=== PATIENT | female | born 1965 | race Caucasian/White ===

== ENCOUNTER 2018-09-08 00:25 | Outpatient (CLI) | payer OTHER, SELFPAY ==
--- NOTE | 2018-09-08 08:21 | DI.MAMMO_ITS ---
SYMPTOMS/DIAGNOSIS: SCREENING, Z12.31 MAMMOGRAMS: Mammograms were interpreted according to the usual protocol including computer analysis with CAD system, tomosynthesis and C view imaging. The breast tissue is heterogeneously radiodense, which lowers the sensitivity of the study. There is no dominant mass. There are no suspicious calcifications and there has been no significant interval change when compared with prior images. SUMMARY: No evidence of malignancy, category 1. Yearly screening mammography is recommended. Breast density category C. MQSA ASSESSMENT OF FINDINGS: Negative. Category 1. Patient will receive a letter notifying them of these results. Bi-RADS category C. The breasts are heterogeneously dense, which may obscure small masses.
== END 2018-09-08 00:45 ==
PROVIDERS: PCP Student in an Organized Health Care Education/Training Program; Visit Provider Nurse Practitioner Family
DX: Z12.31 Encounter for screening mammogram for malignant neoplasm of breast (principal)
CPT/HCPCS: 77063; 77067

== ENCOUNTER 2018-11-15 10:33 | Outpatient (CLI) | payer OTHER, SELFPAY ==
--- NOTE | 2018-11-15 10:31 | DI.RAD_ITS ---
SYMPTOM/DIAGNOSIS: LT KNEE PAIN LEFT KNEE: There is a small joint effusion. There is spurring at the quadriceps insertion on the patella. The femoral tibial and patellofemoral joint spaces appear well maintained. IMPRESSION: Mild degenerative changes and joint effusion.
== END 2018-11-15 10:53 ==
PROVIDERS: PCP Student in an Organized Health Care Education/Training Program; Visit Provider Physician Assistant
DX: M25.562 Pain in left knee (principal); M17.12 Unilateral primary osteoarthritis, left knee; M25.462 Effusion, left knee
CPT/HCPCS: 73562

== ENCOUNTER 2018-11-18 08:18 | Emergency (ER) | payer OTHER, SELFPAY ==
[2018-11-18 08:29] VITALS: BP 159/95; PULSE 74; RESP 16; TEMP 36.6; O2SAT 96
--- NOTE | 2018-11-18 08:37 | W.ED.GENAD ---
Discharge Plan Disposition Patient Disposition: HOME Condition: Stable Discharge Details Chief Complaint: RespSymp Clinical Impression: Acute upper respiratory infection Primary Care Provider: Seda Estrada ED Provider: Jan Vizcarra Home Meds and New Rx's Prescriptions: New prednisone 20 mg tablet 60 mg PO DAILY 4 Days Qty: 12 RF: 0 Continued ywjmymoytj-tpsnzejuybzcx-enyw 50-300-40 mg capsule 1 cap PO TID PRN (Reason: pain) Qty: 30 RF: 2 cholecalciferol (vitamin D3) 3,000 unit tablet 4,000 unit PO DAILY Qty: 90 RF: 5 Estring 2 mg (7.5 mcg /24 hour) ring 1 vag ring VG [id number] Qty: 1 RF: 0 Arnuity Ellipta 200 mcg/actuation blister with device 1 inh IH DAILY Qty: 30 RF: 0 hydrochlorothiazide 12.5 mg tablet 12.5 mg PO DAILY Qty: 90 RF: 3 omega-3 fatty acids 1,000 mg capsule 1,000 mg PO DAILY Qty: 90 RF: 3 orphenadrine citrate 100 mg tablet extended release 100 mg PO BID Qty: 180 RF: 3 rizatriptan [Maxalt] 10 mg tablet 10 mg PO .COMPLEX Qty: 30 RF: 2 Discharge Instructions Instructions: Upper Respiratory Infection (ED) Additional Instructions: follow up with your primary care provider within a week if symptoms continue return to the emergency department if you have severe worsening shortness of breath or severe pain Medical Decision Making 52 yo female who states she has a hx of asthma when she has uri's, who comes in with dry cough for a week. Denies fevers recent travel or chest pressure. Has been using inhaler without relief and states she has azithromycin which she started 3 days ago. She appears well systemically and has no fever so doubt pna and do not feel chest imaging indicated. She does have some apical wheezing bilaterally and clear rhinorrhea, suspect viral uri, will tx with steroid and neb and reassess. pt feeling much better and no longer has wheeizng. will start prednisone and have her f/u with pcp and return precautions given Differential Diagnosis bronchitis, asthma, pna HPI General Mode of arrival: ambulatory. Date/Time Provider Initiated Documentation: 11/18/18 08:29. Limitations to Documentation: no limitations. Information obtained by: patient. History of Present Illness 52 year old F presents to the emergency department with the chief complaint of cough, described as moderate, Patient started experiencing this day(s) (4) and it has been constant. No relieving factors improve symptom(s), No exacerbating factors reported . Patient did receive the following treatments prior to arrival, other (inhaler, azithromycin) Related Data Home Medications Medication Instructions Recorded Confirmed jmicdefqdb-fxnahfxezdbqq-slyvxnmi 1 cap PO TID PRN #30 cap 11/04/18 11/18/18 50 mg-300 mg-40 mg capsule cholecalciferol (vitamin D3) 3,000 4,000 unit PO DAILY #90 tab 11/04/18 11/18/18 unit tablet estradiol 2 mg (7.5 mcg/24 hour) 1 vag ring VG [id number] #1 each 11/04/18 11/18/18 vaginal ring fluticasone furoate 200 1 inh IH DAILY #30 each 11/04/18 11/18/18 mcg/actuation blister powder for inhalation hydrochlorothiazide 12.5 mg tablet 12.5 mg PO DAILY #90 tab 11/04/18 11/18/18 omega-3 fatty acids 1,000 mg 1,000 mg PO DAILY #90 cap 11/04/18 11/18/18 capsule orphenadrine citrate ER 100 mg 100 mg PO BID #180 tab 11/04/18 11/18/18 tablet,extended release rizatriptan 10 mg tablet 10 mg PO .COMPLEX #30 tab 11/04/18 11/18/18 prednisone 60 mg PO DAILY 4 Days #12 tab 11/18/18 Previous Rx's Medication Instructions Recorded rtckpntkjd-mimzhhnggdnhz-zhkpmrgc 1 cap PO TID PRN #30 cap 11/04/18 50 mg-300 mg-40 mg capsule cholecalciferol (vitamin D3) 3,000 4,000 unit PO DAILY #90 tab 11/04/18 unit tablet estradiol 2 mg (7.5 mcg/24 hour) 1 vag ring VG [id number] #1 each 11/04/18 vaginal ring fluticasone furoate 200 1 inh IH DAILY #30 each 11/04/18 mcg/actuation blister powder for inhalation hydrochlorothiazide 12.5 mg tablet 12.5 mg PO DAILY #90 tab 11/04/18 omega-3 fatty acids 1,000 mg 1,000 mg PO DAILY #90 cap 11/04/18 capsule orphenadrine citrate ER 100 mg 100 mg PO BID #180 tab 11/04/18 tablet,extended release rizatriptan 10 mg tablet 10 mg PO .COMPLEX #30 tab 11/04/18 prednisone 60 mg PO DAILY 4 Days #12 tab 11/18/18 Allergies Allergy/AdvReac Type Severity Reaction Status Date / Time naproxen [From Naprelan] Allergy Unknown Hives. Verified 11/18/18 08:33 Long acting naproxen. Tolerates Naproxen fine Tetanus Vaccines and Toxoid AdvReac Unknown Flu like Verified 11/18/18 08:33 symptoms General Stated Complaint: RespSymp LUCERO: 3 Review of Systems Review of Systems All systems reviewed & are unremarkable except as noted in HPI and below Constitutional Denies chills, Denies fever(s) and Denies weakness Gastrointestinal Denies abdominal pain and Denies vomiting Integumentary/Breasts Denies rash Neurologic Denies weakness PFSH Medical History Family hx of colon cancer requiring screening colonoscopy (Chronic) Hyperglycemia (Acute) Vitamin D deficiency (Acute) Osteoarthritis (Chronic) Seizures (Resolved) Migraine headache (Chronic) delivery delivered (Acute) Surgical History 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 What is your relationship status?: Panel score (0-1 are the most socially isolated patients): 1 What type of physical activity do you participate in: none Seatbelt use: always Exam Const General: no acute distress Orientation: alert HENMT Head: normal to inspection Ears: external ears normal General nose exam: external nose normal Mouth: moist mucous membranes Eyes General: appearance normal, both eyes and all related structures Neck Neck: normal visual inspection Resp Effort & Inspection: normal respiratory effort and able to speak in complete sentences Cardio Rate: regular rate Skin General skin exam: no rashes or lesions noted Neuro General: alert and oriented x3 Extrem General: normal to inspection Psych Mental Status: mental status grossly normal Course Vital Signs Temperature 36.6 C 11/18/18 08:29 Pulse 74 11/18/18 08:29 Respiratory Rate 16 11/18/18 08:29 Blood Pressure 159/95 H 11/18/18 08:29 Pulse Oximetry 96 11/18/18 08:29 Temperature 36.6 C 11/18/18 08:29 Temperature Source Skin 11/18/18 08:29 Pulse 74 11/18/18 08:29 Respiratory Rate 16 11/18/18 08:29 Respiratory Effort Non-Labored 11/18/18 08:29 Blood Pressure 159/95 H 11/18/18 08:29 Blood Pressure Position Sitting 11/18/18 08:29 Pulse Oximetry 96 11/18/18 08:29 Oxygen Delivery Method Room Air 11/18/18 08:29 Oxygen Flow Rate 0 11/18/18 08:29 Pain Level 2 11/18/18 08:29
[2018-11-18 08:40] VITALS: RESP 8
[2018-11-18] MEDS: Albuterol/Ipratropium 3 ML UPD VIAL UPD (08:40)
[2018-11-18] MEDS: predniSONE 20 MG TAB 60 MG PO (08:40)
== END 2018-11-18 12:49 | disposition home or self-care (01) ==
PROVIDERS: Emergency Provider Emergency Medicine; PCP Student in an Organized Health Care Education/Training Program
DX: J06.9 Acute upper respiratory infection, unspecified (principal); J45.909 Unspecified asthma, uncomplicated
CPT/HCPCS: 94640; 99283; J7512; J7620

== ENCOUNTER 2019-01-10 09:39 | Outpatient (CLI) | payer OTHER, SELFPAY ==
--- NOTE | 2019-01-10 16:45 | DI.RAD_ITS ---
SYMPTOM/DIAGNOSIS: EXAC OF ASTHMA, BRONCHITIS, J45.901, J40 PA AND LATERAL CHEST: No priors. The heart is normal in size. The lungs are clear. The mediastinal structures and pleura appear intact. CONCLUSION: Normal chest.
== END 2019-01-10 09:59 ==
PROVIDERS: PCP Nurse Practitioner Adult Health; Visit Provider Nurse Practitioner Adult Health
DX: J40 Bronchitis, not specified as acute or chronic (principal); J45.901 Unspecified asthma with (acute) exacerbation
CPT/HCPCS: 71046

== ENCOUNTER 2019-02-14 02:16 | Outpatient (CLI) | payer OTHER, SELFPAY ==
--- NOTE | 2019-02-14 | PFT_ITS ---
PULMONARY FUNCTION TEST REPORT Patient - Marissa Zuluaga 63 DATE OF SERVICE February 14, 2019 REQUESTING PROVIDER Marilee Mccullough N.P. INTERPRETATION OF STUDY Spirometry shows no evidence of obstructive airways disease. No bronchodilator response. LUNG VOLUMES - Lung volumes show no evidence of restriction. DIFFUSION CAPACITY- Normal. AIRWAY RESISTANCE - Normal. IMPRESSION Overall normal pulmonary function study. There was somewhat poor patient effort for both pre and post bronchodilator spirometry. Clinical correlation recommended. Geraldine Schneider M.D. NAIN/ T- 02/21/19
[2019-02-14] MEDS: Inhaler, Assist Device 1 EACH MC (15:29)
[2019-02-14] MEDS: Albuterol HFA 18 GM 200 PUFF INH IH (15:30)
== END 2019-02-14 02:36 ==
PROVIDERS: PCP Student in an Organized Health Care Education/Training Program; Visit Provider Nurse Practitioner Adult Health
DX: J45.909 Unspecified asthma, uncomplicated (principal); R05 Cough
CPT/HCPCS: 94060; 94150; 94726; 94729

== ENCOUNTER 2019-02-18 13:40 | Outpatient (CLI) | payer OTHER, SELFPAY ==
[2019-02-18 14:37] LABS: HCT 41.5 % (36.0-46.0); HGB 13.7 g/dL (12.0-15.5); Mean Corpuscular Hemoglobin 29.8 pg (27.0-33.0); Mean Corpuscular Volume 90.2 fL (80-95); Mean Platelet Volume 10.7 fL (8.0-11.0); Platelet Count 221 x1000/uL (130-400); RBC Distribution Width 13.9 % (11.7-14.6); White Blood Cell Count 5.17 k/cumm (4.4-10.8)
[2019-02-18 15:08] LABS: Anion Gap 10.2 mmol/L (3-11); BUN 12 mg/dL (7-18); CO2 27.8 mmol/L (21.0-32.0); CREATININE 0.74 mg/dL (0.55-1.02); Calcium 8.8 mg/dL (8.5-10.1); Chloride 103 mmol/L (98-107); Glucose 136 mg/dL (70-100); Potassium 3.7 mmol/L (3.5-5.1); Sodium 141 mmol/L (136-145)
[2019-02-18 15:14] LABS: C-Reactive Protein 0.64 mg/dL (0.0-0.3); Creatine Kinase 151 U/L (26-192); PHOSPHORUS 3.8 mg/dL (2.6-4.7)
[2019-02-18 16:08] LABS: ESR 6 mm/hr (0-30)
[2019-02-20 08:38] LABS: Vitamin D 25 Total 37.4 ng/ml (30-100)
[2019-02-21 11:38] LABS: Rheumatoid Factor <8 IU/mL (<12.5)
[2019-02-21 13:45] LABS: ANA Interpretation Negative (NEGAT)
== END 2019-02-18 14:00 ==
PROVIDERS: Obstetrics & Gynecology Gynecology; PCP Student in an Organized Health Care Education/Training Program; Visit Provider Psychiatry & Neurology Neurology
DX: M79.10 Myalgia, unspecified site (principal); N92.0 Excessive and frequent menstruation with regular cycle; I10 Essential (primary) hypertension; E66.09 Other obesity due to excess calories; Z01.812 Encounter for preprocedural laboratory examination; Z01.818 Encounter for other preprocedural examination
CPT/HCPCS: 36415; 80048; 82306; 82550; 85027; 85652; 86850; 86900; 86901; 84100; 86038; 86140; 86431

== ENCOUNTER 2019-02-23 06:15 | Day surgery (SDC) | payer OTHER, SELFPAY ==
[2019-02-23 06:17] VITALS: BP 131/75; PULSE 76; RESP 17; TEMP 36.6; O2SAT 95
[2019-02-23] MEDS: Lactated Ringers 1,000 ML 125 ML IV (06:40)
[2019-02-23] MEDS: Bupivacaine 0.25% Pres-Free 30 ML VIAL (07:54)
--- NOTE | 2019-02-23 08:11 | ENDOMET_PTH ---
PATIENT: Marissa Zuluaga LOC: [facility] U#:[id number] AGE/SX: 53/F ROOM: RE02/23/[address]: Cristal Marquis : 1965 BED: DIS: 02/23/2019 SPEC #: [id number] RECD: 02/23/19 12:36 STATUS: MACHELLE REQ #: [id number] JOSÉ MANUEL: 02/23/19 08:[address]: Cristal Marquis DEPT: Surgical Specimen RECD BY: Amy Odell ENTERED: 02/23/19 12:37 SP TYPE: Endomet OTHR DR: Seda Estrada DO Tissues: 1 - ENDOMETRIUM BX/CURRETTE Procedures: GROSS AND MICRO LEVEL 4 Comments: [id number]
[2019-02-23 08:19] VITALS: BP 132/78; PULSE 82; RESP 19; TEMP 36.7; O2SAT 98
[2019-02-23 08:24] VITALS: BP 140/80; PULSE 75; RESP 12; TEMP 36.7; O2SAT 100
--- NOTE | 2019-02-23 08:26 | W.PM.DSUDISC ---
Discharge Plan Disposition Patient Disposition: HOME Condition: Fair Discharge Details Attending Provider: Cristal Marquis Primary Care Provider: Seda Estrada Home Meds and New Rx's Prescriptions: No Action carbidopa-levodopa [Sinemet] 25-100 mg tablet 1 tab PO DIRECTED Qty: 60 RF: 5 orphenadrine citrate 100 mg tablet extended release 100 mg PO BID PRNRF: 0 smqrhcgpqh-wtcegrkuuofia-prpi 50-300-40 mg capsule 1 cap PO TID PRN (Reason: pain) Qty: 30 RF: 2 cholecalciferol (vitamin D3) 3,000 unit tablet 4,000 unit PO DAILY Qty: 90 RF: 5 hydrochlorothiazide 12.5 mg tablet 12.5 mg PO DAILY Qty: 90 RF: 3 omega-3 fatty acids 1,000 mg capsule 1,000 mg PO DAILY Qty: 90 RF: 3 rizatriptan [Maxalt] 10 mg tablet 10 mg PO .COMPLEX Qty: 30 RF: 2 norethindrone acetate 5 mg tablet 5 mg PO .COMPLEX Qty: 60 RF: 1 Arnuity Ellipta 200 mcg/actuation blister with device 1 inh IH DAILY Qty: 30 RF: 0 Discharge Instructions Stand Alone Forms: DSU Post Gynecology Surgery Activity:: Activity as Tolerated Diet:: As Tolerated Discharge Orders Discharge Orders: Discharge Order (Routine); Ordered 02/23/19 Ordered By: Cristal Mraquis DS: Diagnosis Discharge Diagnosis (1) Encounter for IUD insertion: Start date: 02/23/19 Status: Acute (2) Abnormal uterine bleeding (AUB): Status: Acute
[2019-02-23 08:29] VITALS: BP 141/82; PULSE 75; RESP 11; TEMP 36.7; O2SAT 100
--- NOTE | 2019-02-23 08:30 | ROE_ITS ---
Date of service: 02/23/19 Time of Service: 08:30 Operative Note DATE OF PROCEDURE: 02/23/19 PRE-OP DIAGNOSIS: Abnormal uterine bleeding POST-OP DIAGNOSIS: same PROCEDURE: Diagnostic hysteroscopy, D&C, description of procedure. SURGEON: Cristal Marquis ANESTHESIA: DESHAWN ESTIMATED BLOOD LOSS: 5 PATHOLOGY: other (Endometrial curettings to pathology) COMPLICATIONS: None Patient was transported to: PACU Patient's condition: stable Indications: 53-year-old female with abnormal uterine bleeding not responsive to medical therapy. She had Mirena IUD in the past which was difficult to placed in the office decision was made to proceed with the IUD placement after the D&C. Findings: Uterus sounded to 8 cm and anteflexed. Thickened endometrial lining with synechial-like adhesions in the cavity. No fibroids. Multiple polypoid structures that were removed during the curettage. Procedure Description: Patient was taken the operating room she placed in the dorsal supine position in general laryngeal mask anesthesia was administered without difficulty. She was then placed in the dorsolithotomy position in yellowfin stirrups prepped and draped in the usual sterile fashion. A timeout was performed. A bivalve speculum was placed in the vagina and the anterior lip of the cervix was infiltrated with 1 cc of quarter percent Marcaine without epinephrine. A single-tooth tenaculum was then used to grasp the anterior lip of the cervix and a paracervical block was performed using quarter percent Babatunde ine 5 cc in the vaginal cervical interface at the 4 and 8:00 positions. Cervix was dilated to a maximum of 16 Malik allowing a hysteroscope to be inserted into the uterine cavity with normal saline as distention medium. The cavity was carefully inspected with the above-noted findings. The hysteroscope was then removed and banjo curette was inserted into the uterine cavity and all 4 quadrants of the uterine cavity were sequentially curetted until gritty texture was obtained. Moderate amount of polypoid tissue was removed. Hysteroscope was then reinserted into the uterine cavity cavity inspected and a final curettage was performed after the hysteroscope was removed. A reinsertion of the hysteroscope and inspection uterine cavity showed this the keel tissue and the polypoid tissue to be significantly reduced. Tenaculum was removed from the anterior lip of the cervix tenaculum site was noted to be hemostatic. All instruments removed from the patient's vagina. The patient was then placed in the dorsal supine position awakened extubated and transported to recovery in stable condition. All sponge lap needle counts correct x2. No antibiotics were required for this procedure. SCDs are in place for the entire case.
[2019-02-23 09:25] VITALS: BP 130/72; PULSE 72; RESP 16; TEMP 36.4; O2SAT 99
--- NOTE | 2019-02-23 17:17 | ROE_ITS ---
Date of service: 02/23/19 Time of Service: 17:18 Operative Note DATE OF PROCEDURE: 02/23/19 PRE-OP DIAGNOSIS: Abnormal uterine bleeding POST-OP DIAGNOSIS: same PROCEDURE: Diagnostic hysteroscopy, D&C, description of procedure. SURGEON: Cristal Marquis ANESTHESIA: DESHAWN ESTIMATED BLOOD LOSS: 5 PATHOLOGY: other (Endometrial curettings to pathology) Patient was transported to: PACU Patient's condition: stable Implants: Diagnostic hysteroscopy, D&C, Mirena IUD insertion after the procedure Indications: 53yo female with heavy, daily bleeding five months after Mirena IUD removed. Some but not complete response to Progestin therapy. Findings: Uterus sounded to 8 cm the endometrial lining was irregular, thick with bands of lining suggesting synechiae. Both tubal ostia were visualized. 3 small polypoid structures were appreciated and were successfully curetted and removed. Procedure Description: Patient was placed in the dorsal supine position and laryngeal mask anesthesia was administered without difficulty she was then placed in the dorsal lithotomy position in [facility] SCDs in place. She was prepped and draped in the usual sterile fashion. A surgical timeout was performed. A bivalve speculum was placed in the vagina and the anterior lip of the cervix was infiltrated with 1 cc of quarter percent Marcaine without epinephrine. A single-tooth tenaculum was used to grasp the anterior lip of the cervix and hold it in place. The cervix was sequentially dilated to a maximum of 16 Malik after the uterus was sounded. Hysteroscope was then introduced into the uterine cavity and under direct visualization with normal saline as a distention medium. After inspection of the uterine cavity the banjo curette was used to sequentially curetted all 4 quadrants of the uterine cavity until a gritty texture was obtained.
== END 2019-02-23 10:11 | disposition home or self-care (01) ==
PROVIDERS: PCP Student in an Organized Health Care Education/Training Program; Visit Provider Obstetrics & Gynecology Gynecology
PROC: 0UDB8ZZ Extraction of Endometrium, Via Natural or Artificial Opening Endoscopic (ICD-10-PCS; CPT 58558; principal; 2019-02-23 07:30)
PROC: (CPT 58558; 2019-02-23 07:30)
DX: N93.9 Abnormal uterine and vaginal bleeding, unspecified (principal); N85.00 Endometrial hyperplasia, unspecified
CPT/HCPCS: 58558; 81025; 86850; 86900; 86901; 88305; J1100; J1885; J2250; J2405

== ENCOUNTER 2019-03-17 12:18 | Day surgery (SDC) | payer OTHER, SELFPAY ==
[2019-03-17] MEDS: Lactated Ringers 1,000 ML 80 ML IV (12:40)
[2019-03-17 12:49] VITALS: BP 137/90; PULSE 85; RESP 16; TEMP 36.1; O2SAT 98
--- NOTE | 2019-03-17 14:11 | W.PM.DSUDISC ---
Discharge Plan Disposition Patient Disposition: HOME Condition: Good Discharge Details Reason For Visit: Colonoscopy Attending Provider: Cynthia Zhao Primary Care Provider: Seda Estrada Home Meds and New Rx's Prescriptions: Continued carbidopa-levodopa [Sinemet] 25-100 mg tablet 1 tab PO DIRECTED Qty: 60 RF: 5 orphenadrine citrate 100 mg tablet extended release 100 mg PO BID PRNRF: 0 ozqftspgeh-tfuskgodefnhc-gbvk 50-300-40 mg capsule 1 cap PO TID PRN (Reason: pain) Qty: 30 RF: 2 cholecalciferol (vitamin D3) 3,000 unit tablet 4,000 unit PO DAILY Qty: 90 RF: 5 hydrochlorothiazide 12.5 mg tablet 12.5 mg PO DAILY Qty: 90 RF: 3 omega-3 fatty acids 1,000 mg capsule 1,000 mg PO DAILY Qty: 90 RF: 3 rizatriptan [Maxalt] 10 mg tablet 10 mg PO .COMPLEX Qty: 30 RF: 2 Arnuity Ellipta 200 mcg/actuation blister with device 1 inh IH DAILY Qty: 30 RF: 0 acetaminophen [Tylenol] 325 mg Capsule 650 mg PO ONCE PRNRF: 0 MigreLief 200-180-50 mg Tablet PO RF: 0 Discharge Instructions Additional Instructions: Findings: Diverticulosis was present. Make sure to take in 30 grams of fiber daily. Follow up: Plan for colonoscopy in 5 years due to family history. Please call if you develop: fevers >101.5 Nausea or Vomiting Abdominal pain that is not transient DAY SURGERY UNIT POST COLONOSCOPY INSTRUCTIONS 1. Because there will be medication in your system for the next 24 hours, you may feel a little sleepy. Your coordination will be affected. Therefore: a. Do not drive or operate dangerous equipment for 24 hours. b. Do not drink alcohol beverages for 24 hours (not even beer). c. Plan to go home and rest for the day. 2. Generally there are no restrictions on your activity after a day or so has gone by, but you may feel a bit fatigued for a few days. 3 After you arrive home you may have a light meal and return to a normal diet as you can tolerate it without feeling sick to your stomach. 4. After surgery, you may feel pain or discomfort. This should be only transient, but if it persists please contact your doctor. 5. If there are any questions regarding the findings of your procedure, please feel free to contact your doctor. 6. If you are unable to contact your doctor with a problem, contact the hospital at [phone]. 7. Continue all your regular medications unless directed otherwise. I understand the above instructions and have no questions. Signature of Patient or Responsible Adult Escort Date/Time Name of Responsible Adult Escort Signature of Nurse Date/Time Activity:: Activity as Tolerated Diet:: As Tolerated Discharge Orders Discharge Orders: Discharge Order (Routine); Ordered 03/17/19 Ordered By: Cynthia Zhao DS: Diagnosis Discharge Diagnosis (1) Diverticulosis: Status: Acute
[2019-03-17 15:04] VITALS: BP 147/96; PULSE 81; RESP 16; TEMP 36.6; O2SAT 99
--- NOTE | 2019-03-18 07:51 | COLE_ITS ---
REPORT OF OPERATIVE PROCEDURE DATE OF PROCEDURE March 17, 2019 PREOPERATIVE DIAGNOSIS Family history of colon cancer. POSTOPERATIVE DIAGNOSIS Diverticulosis. PROCEDURE Colonoscopy. SURGEON Cynthia Zhao M.D. ANESTHESIA General. INDICATIONS This is a 53-year-old woman who presents for routine colon evaluation. Her last colonoscopy was in . Her mother was treated for colon cancer. She is asymptomatic. PROCEDURE DESCRIPTION She was placed in the left [place] position. Propofol was titrated to sedation. Digital rectal examinati on revealed no abnormities. The scope was advanced to the cecum without difficulty. Her prep was exce llent. The ileocecal valve and the appendiceal orifice were clearly identified. The patient was noted to have a diverticulum a few centimeters away from the appendiceal orifice that had a ball of stool lodged in it. The scope was slowly withdrawn with scattered diverticulosis noted throughout the colon . She had a moderate amount in the sigmoid region. No other abnormalities were seen within the ascen ding, transverse, descending, sigmoid colon or rectum including on retroflexed view. She tolerated th e procedure well and was stable to Recovery. She will need a followup colonoscopy in five years due t o her family history. CC: Seda Estrada DO
== END 2019-03-17 15:20 | disposition home or self-care (01) ==
PROVIDERS: PCP Student in an Organized Health Care Education/Training Program; Visit Provider Surgery
PROC: 0DJD8ZZ Inspection of Lower Intestinal Tract, Via Natural or Artificial Opening Endoscopic (ICD-10-PCS; CPT 45378; principal; 2019-03-17 13:30)
DX: Z12.11 Encounter for screening for malignant neoplasm of colon (principal); Z80.0 Family history of malignant neoplasm of digestive organs; K57.30 Diverticulosis of large intestine without perforation or abscess without bleeding
CPT/HCPCS: 45378

== ENCOUNTER 2019-05-30 11:19 | Outpatient (REF) | payer OTHER, SELFPAY ==
[2019-05-30 12:46] LABS: Bilirubin Negative (Negative); Blood Trace-lysed (Negative); Clarity Clear (Clear); Glucose Negative (Negative); Ketones Negative (Negative); Leukocyte Esterase Small (Negative); Nitrite Positive (Negative); Urobilinogen 0.2 EU/dL (Up TO 0.2)
[2019-05-30 13:07] LABS: Epithelial Cells Negative HPF (Negative); RBC 0-2 HPF (0-2); WBC 0-2 HPF (0-5)
[2019-05-30 13:08] LABS: Bacteria Rare HPF (Negative); C & S Indicated? Yes; Casts Negative LPF (Negative); Crystals Negative HPF (Negative); Mucus Negative (Negative); Other Cells Negative (Negative)
== END 2019-05-30 11:39 ==
LOC: LBN 11:19
PROVIDERS: PCP Student in an Organized Health Care Education/Training Program; Visit Provider Advanced Practice Midwife
DX: R30.0 Dysuria (principal)
CPT/HCPCS: 87077; 81003; 81015; 87086; 87186

== ENCOUNTER 2019-08-30 16:01 | Outpatient (CLI) | payer OTHER, SELFPAY ==
--- NOTE | 2019-08-30 15:42 | DI.RAD_ITS ---
EXAM: XR HAND RT COMPLETE CLINICAL HISTORY: Pain and stiffness, right pointer finger. M79.644, M25.649, decreased range of mo tion rt hand/fingers TECHNIQUE: 2D digital imaging was performed. COMPARISON: No exams were available for comparison FINDINGS: BONES: No acute fracture is present. At the interphalangeal joints, joint space narrowing, subchondra l sclerosis and periarticular spurring is present. There are erosions seen at the distal interphalan geal joints of the right hand. There is ankylosis of the DIP joint of the right ring finger. Metaca rpophalangeal joints are well maintained. JOINTS: No dislocation present. SOFT TISSUE: Normal. IMPRESSION: Findings suggestive of erosive osteoarthritis. DATA REPOSITORY: RADIATION DOSE DELIVERED:
== END 2019-08-30 16:21 ==
PROVIDERS: PCP Student in an Organized Health Care Education/Training Program; Visit Provider Nurse Practitioner
DX: M79.644 Pain in right finger(s) (principal); M25.841 Other specified joint disorders, right hand; M25.641 Stiffness of right hand, not elsewhere classified; M19.041 Primary osteoarthritis, right hand
CPT/HCPCS: 73130

== ENCOUNTER 2019-10-11 08:07 | Outpatient (CLI) | payer OTHER, SELFPAY ==
--- NOTE | 2019-10-11 10:00 | DI.RAD_ITS ---
EXAM: RF JOINT INJECTION FLUORO GUID CLINICAL HISTORY: FLUORO INJECTION R INDEX FINGER,FINGER STIFFNESS,FINGER PAIN,M25.649, TECHNIQUE: 2D and realtime digital imaging was performed. CONTRAST MATERIAL: Water soluble contrast was administered. COMPARISON: No exams were available for comparison FINDINGS: Fluoroscopy was provided for Dr. Zabala during the performance of a injection into the PIP joint o f the index finger. Please refer to the procedure report for complete details. Fluoro time: .02 seconds
[2019-10-11] MEDS: Bupivacaine 0.5% Pres-Free 10 ML VIAL EP (10:09)
[2019-10-11] MEDS: methylPREDNISolone ACETATE 40 MG/ML VIAL 20 MG IM (10:11)
--- NOTE | 2019-10-11 10:46 | W.PROCNOTE ---
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 X-rays demonstrated erosive arthritis of the PIP joint of the index finger. Given the pain, the location of the pain, and the restriction that is imposing on her daily work life schedule, I offered an injection. The goal of the injection was to decrease pain and allow for continued motion to prevent continued distraction of the joint and ultimate fusion as happened to the DIP joint of the ring finger. I discussed the risks of the injection and she agreed to proceed. Procedure Description: Marissa was greeted in the fluoroscopy room. A consent for procedure was signed with the patient after reviewing the procedure details. She was seated next to the fluoroscopy table and her right hand was placed out onto the table. The right index finger was then prepped with ChloraPrep. The radial border of the right index finger PIP joint was then anesthetized subcutaneously with 0.5 cc of 1% lidocaine. After give this a few minutes to set up, fluoroscopy was used to orient the needle for appropriate entry into the PIP joint. A 25-gauge needle was then inserted down to bone. Gentle manipulation of the needle with fluoroscopy assistance provided entry into the PIP joint with easy flow of the injection, 0.5 cc of 0.5% bupivacaine and 20 mg of Depo-Medrol. She tolerated this well. She had notable improvement with her pain after the injection. A Band-Aid was applied.
== END 2019-10-11 08:27 ==
PROVIDERS: PCP Student in an Organized Health Care Education/Training Program; Visit Provider Student in an Organized Health Care Education/Training Program
DX: M79.644 Pain in right finger(s) (principal); M25.641 Stiffness of right hand, not elsewhere classified; M15.4 Erosive (osteo)arthritis
CPT/HCPCS: 20600; 77002; J1030

== ENCOUNTER 2019-10-31 03:30 | Outpatient (CLI) | payer OTHER, SELFPAY ==
[2019-11-01 10:05] LABS: Cyclic Citrullinated Peptide <2.5 U/mL (<5.0)
== END 2019-10-31 03:50 ==
PROVIDERS: PCP Student in an Organized Health Care Education/Training Program; Visit Provider Internal Medicine
DX: J45.909 Unspecified asthma, uncomplicated (principal)
CPT/HCPCS: 36415; 86200

== ENCOUNTER 2019-12-16 20:08 | Outpatient (REF) | payer OTHER, SELFPAY ==
[2019-12-16 20:39] LABS: Bilirubin Negative (Negative); Blood Moderate (Negative); Clarity Turbid (Clear); Glucose Negative (Negative); Ketones Negative (Negative); Leukocyte Esterase Small (Negative); Nitrite Negative (Negative); Specific Gravity >= 1.030 (1.005-1.025); Urobilinogen 0.2 EU/dL (Up TO 0.2); pH 5.5 (5-8)
[2019-12-16 20:59] LABS: Bacteria Few HPF (Negative); C & S Indicated? C&S Done As Ordered; Casts Negative LPF (Negative); Crystals Negative HPF (Negative); Epithelial Cells Few HPF (Negative); Mucus Negative (Negative)
== END 2019-12-16 20:28 ==
LOC: LBN 20:08
PROVIDERS: PCP Student in an Organized Health Care Education/Training Program; Visit Provider Advanced Practice Midwife
DX: R30.0 Dysuria (principal)
CPT/HCPCS: 87077; 81003; 81015; 87086; 87186

== ENCOUNTER 2020-03-17 12:09 | Outpatient (REF) | payer OTHER, SELFPAY ==
[2020-03-17 15:50] LABS: RBC 0-2 HPF (0-2); WBC Negative HPF (0-5)
[2020-03-17 15:51] LABS: Bacteria Negative HPF (Negative); Casts Negative LPF (Negative); Crystals Negative HPF (Negative); Epithelial Cells Rare HPF (Negative); Mucus Negative (Negative)
[2020-03-17 15:52] LABS: C & S Indicated? C&S Done As Ordered
== END 2020-03-17 12:29 ==
LOC: LBN 12:09
PROVIDERS: Obstetrics & Gynecology; PCP Student in an Organized Health Care Education/Training Program; Visit Provider Advanced Practice Midwife
DX: R30.0 Dysuria (principal)
CPT/HCPCS: 81003; 81015; 87086

== ENCOUNTER 2020-04-11 02:03 | Outpatient (CLI) | payer OTHER, SELFPAY ==
[2020-04-11 09:38] LABS: BUN 16 mg/dL (7-18); CREATININE 0.76 mg/dL (0.55-1.02); Calcium 8.8 mg/dL (8.5-10.1); Calculated LDL 118 mg/dL (<100); Chloride 106 mmol/L (98-107); Cholesterol 194 mg/dL (<200); Glucose 123 mg/dL (74-106); HDL Cholesterol 62 mg/dL (40-60); Potassium 4.1 mmol/L (3.5-5.1); Sodium 142 mmol/L (136-145); Triglyceride 73 mg/dL (<150)
== END 2020-04-11 02:23 ==
PROVIDERS: PCP Student in an Organized Health Care Education/Training Program; Visit Provider Student in an Organized Health Care Education/Training Program
DX: E86.0 Dehydration (principal); Z13.220 Encounter for screening for lipoid disorders; R60.9 Edema, unspecified; Z79.1 Long term (current) use of non-steroidal anti-inflammatories (NSAID)
CPT/HCPCS: 36415; 80048; 80061; 83735

== ENCOUNTER 2020-05-04 03:49 | Outpatient (CLI) | payer OTHER, SELFPAY ==
--- NOTE | 2020-05-04 06:00 | DI.MAMMO_ITS ---
EXAM: MG MAMMO SCREENING CLINICAL HISTORY: screening,Z12.39 TECHNIQUE: Bilateral full field digital CC and MLO mammographic images were obtained with 3D tomosyn thesis and utilizing computer aided detection (CAD). COMPARISON: Available for comparison. FINDINGS: Masses/Architectural Distortion: None seen. Microcalcifications: No suspicious pleomorphic-type are seen. Skin Thickening/Nipple Retraction: None. IMPRESSION: 1. No significant interval change with no specific features of malignancy noted. 2. Unless there is more urgent need, screening mammography is recommended, as per [employer] [place] [employer] guidelines. BI-RADS Category 1 - Negative Breast Density - Category C - Heterogeneously dense The mammogram demonstrates the patient's breast tissue is dense. Dense breast tissue is very common a nd is not abnormal but dense breast tissue can make it harder to find cancer on a mammogram. Also, de nse breast tissue may increase their breast cancer risk. This information about the result of the [facility] mogram report was provided to the patient to raise their awareness. Use this report when you speak wi th the patient about their risks for breast cancer, which includes their family history. At that time , you may recommend for more screening tests (Ultrasound or MRI) as they might be useful based on the ir risk. A negative radiographic report should not delay biopsy if a dominant or clinically suspicious mass is present. Up to ten percent of cancers are not identified on mammography. A negative report may reinforce clinical impression. Adenosis and dense breasts may obscure an underlying neoplasm. False positive reports average 6 to 10%. Patient will receive a letter notifying them of these results.
== END 2020-05-04 04:09 ==
PROVIDERS: PCP Student in an Organized Health Care Education/Training Program; Visit Provider Student in an Organized Health Care Education/Training Program
DX: Z12.31 Encounter for screening mammogram for malignant neoplasm of breast (principal)
CPT/HCPCS: 77063; 77067

== ENCOUNTER 2020-05-17 02:54 | Outpatient (CLI) | payer OTHER, SELFPAY ==
[2020-05-17 10:03] LABS: Abs Immature Grans 0.01 10^3/uL (0.0-0.06); Absolute Basophil Count 0.03 10^3/uL (0.0-0.2); Absolute Eosinophil Count 0.08 10^3/uL (0.0-0.7); Absolute Lymphocyte Count 1.41 10^3/uL (1.2-3.4); Absolute Monocyte Count 0.33 10^3/uL (0.1-0.8); Absolute Neutrophil Count 2.69 10^3/uL (1.2-6.7); Basophils % 0.7; Eosinophils % 1.8; HCT 41.6 % (36.0-46.0); HGB 13.9 g/dL (11.2-15.7); Immature Grans % 0.2; MCH 29.9 pg (27.0-33.0); MCHC 33.4 % (32.0-36.0); MCV 89.5 fL (80-95); MPV 9.8 fL (8.0-11.0); Monocytes % 7.3; Nucleated RBC 0 %; Platelet Count 227 10^3/uL (130-400); RBC 4.65 10^6/uL (3.93-5.22); RDW 14.2 % (11.7-14.6); RDW-SD 46.4 fL; WBC 4.55 10^3/uL (4.4-10.8)
[2020-05-17 11:20] LABS: ALT 67 U/L (14-59); AST 34 U/L (15-37); Albumin 3.9 g/dL (3.4-5.0); Alkaline Phosphatase 115 U/L (46-116); Anion Gap 6.7 mmol/L (3-11); BUN 19 mg/dL (7-18); Bilirubin, Total 0.8 mg/dL (0.2-1.0); C-Reactive Protein 0.68 mg/dL (0.0-0.3); CO2 28.3 mmol/L (21.0-32.0); CREATININE 0.85 mg/dL (0.55-1.02); Calcium 9.2 mg/dL (8.5-10.1); Chloride 103 mmol/L (98-107); Glucose 98 mg/dL (74-106); Potassium 3.9 mmol/L (3.5-5.1); Sodium 138 mmol/L (136-145); Total Protein 6.9 g/dL (6.4-8.2)
== END 2020-05-17 03:14 ==
PROVIDERS: PCP Student in an Organized Health Care Education/Training Program; Visit Provider Internal Medicine
DX: Z79.899 Other long term (current) drug therapy (principal); L40.0 Psoriasis vulgaris; M89.49 Other hypertrophic osteoarthropathy, multiple sites
CPT/HCPCS: 36415; 80053; 85025; 86140

== ENCOUNTER 2020-08-08 11:18 | Outpatient (CLI) | payer OTHER, SELFPAY ==
--- OUTSIDE RECORDS SUMMARY | 2020-08-08 11:23 | XMS_ITS ---
:1965 Author Care Team Providers Name Role Phone ALEX HAYWOOD Primary Care Provider [phone] Allergies Code Code System Name Reaction Severity Status Onset 7258 RxNorm Naproxen ? ? Active ? Tetanus and ? ? Active ? Diphtheria Toxoids Medications Name Status Start Date Stop Date ? ? acetaminophen 325 mg tablet Active ? Not available Take 2 tablets every 6 hours by oral route. albuterol sulf 90 mcg/actuation breath activated powder inhaler, sensor Active ? Not available Inhale 2 puffs every 4 hours by inhalation route. albuterol sulfate 2.5 mg/3 mL (0.083 %) Active ? Not available solution for nebulization Arnuity Ellipta 200 mcg/actuation Completed ? 04/20/2020 powder for inhalation benzonatate 100 mg capsule Active ? Not a vailable Breo Ellipta 100 mcg-25 mcg/dose powder Active ? Not available for inhalation Breo Ellipta 200 mcg-25 mcg/dose powder Active ? Not available for inhalation butalbital 50 mg-acetaminophen 300 mg tablet Active ? Not available Take 1 tablet every 4 hours by oral route. kabwwsupeg-smofjbwniwhvo-inipfjxv 50 Active ? Not available mg-300 mg-40 mg capsule carbidopa 25 mg-levodopa 100 mg tablet Active ? Not available cholecalciferol (vitamin D3) 75 mcg (3,000 unit) tablet Active ? Not available Take by oral route. ciprofloxacin 500 mg tablet Completed ? 03/30 Estring 2 mg (7.5 mcg/24 hour) vaginal Active ? Not available ring folic acid 1 mg tablet Active ? Not avail able Humira(CF) Pen 40 mg/0.4 mL Active ? Not available subcutaneous kit hydrochlorothiazide 12.5 mg capsule Completed ? 04/20/2020 hydrochlorothiazide 12.5 mg tablet Active ? Not available methotrexate sodium 2.5 mg tablet Active ? Not available metronidazole 500 mg tablet Completed ? 03/30 nitrofurantoin 100 mg tablet Active ? Not available Take by oral route. nitrofurantoin Completed ? 04/20/2020 monohydrate/macrocrystals 100 mg capsule norethindrone acetate 5 mg tablet Completed ? 04/20/2020 Keyes 3 Active ? Not available orphenadrine citrate 100 mg tablet Completed ? 04/20/2020 Take by oral route. orphenadrine citrate ER 100 mg Active ? N ot available tablet,extended release phenazopyridine 200 mg tablet Completed ? prednisone 10 mg tablet Completed ? 04/20/20 20 prednisone 20 mg tablet Completed ? 04/20/20 20 Proventil HFA 90 mcg/actuation aerosol Completed ? 04/20/2020 inhaler riboflavin 200 mg-magnesium citrate,oxide 180 mg-feverfew 50 mg tablet Active ? Not available Take by oral route. rizatriptan 10 mg tablet Active ? Not diego ilable Problems Name Status Onset Date Source ? Vitamin D Deficiency Active 09/07/2019 ? Vitamin Deficiency Unknown 09/07/2019 ? Seizure Disorder Active 09/07/2019 ? Migraine Active 09/07/2019 ? Asthma Active 09/07/2019 ? Diverticulitis Active 09/07/2019 ? Osteoarthritis Active 09/07/2019 ? Cramp in Lower Limb Active 09/07/2019 ? Hyperglycemia Active 09/07/2019 ? Obstructive Sleep Apnea Syndrome Active 10/11/2019 ? Tomography - Chest Abnormal Active 04/20/2020 ? Procedures Date Name Performed by ? 04/20/2020 CT, Chest, W/o Contrast [facility] (Radiology) [address] [place] [address] (Work Place) Results Lab Results Date Name Specimen Result Interpretation Description Value Range Status Address ? 10/31/2019 Cyclic ? No observation ? ? ? [facility] recorded. [place] Peptide Ab, [facility], Hosp ital Lab: Serum [address] [facility] [address] Past Encounters 04/20/2020 Asthma; Obstructive Sleep Apnea Syndrome ; Tomography - Chest Abnormal Geraldine Schneider MD: [address] [place] [address] Dr abel Rizvi , [place] [address], Ph. 10/11/2019 Asthma; Obstructive Sleep Apnea Syndrome Geraldine Schneider MD: [address] [place] [address] Dr abel [address]izvi , [place] [address], Ph. Social History None recorded. Vaccine List Vaccine Type influenza, injectable, quadrivalent 03/31/2019 Tdap 08/26/2003 Plan of Care Reminders Provider Appointments None ? ? recorded. Lab None ? ? recorded. Referral None ? ? recorded. Procedures None ? ? recorded. Surgeries None ? ? recorded. Imaging None ? ? recorded. Vitals Height Weight BMI Blood Pressure 167.64 cm 115.4 kg 41.1 kg/m2 138/64 mm[Hg]
[2020-08-08 14:55] LABS: HCT 41.5 % (36.0-46.0); MCHC 33.7 % (32.0-36.0); MPV 9.5 fL (8.0-11.0); Platelet Count 227 10^3/uL (130-400); RBC 4.51 10^6/uL (3.93-5.22); RDW 13.4 % (11.7-14.6); RDW-SD 44.6 fL; WBC 5.11 10^3/uL (4.4-10.8)
[2020-08-08 16:30] LABS: ALT 90 U/L (14-59); AST 40 U/L (15-37); Albumin 3.8 g/dL (3.4-5.0); Alkaline Phosphatase 112 U/L (46-116); Anion Gap 9.1 mmol/L (3-11); BUN 19 mg/dL (7-18); Bilirubin, Total 0.4 mg/dL (0.2-1.0); C-Reactive Protein 0.23 mg/dL (0.0-0.3); CO2 29.9 mmol/L (21.0-32.0); CREATININE 0.9 mg/dL (0.55-1.02); Calcium 8.9 mg/dL (8.5-10.1); Chloride 103 mmol/L (98-107); Glucose 110 mg/dL (74-106); Potassium 3.7 mmol/L (3.5-5.1); Sodium 142 mmol/L (136-145)
== END 2020-08-08 11:19 | disposition home or self-care (01) ==
LOC: LBO 11:21
PROVIDERS: PCP Student in an Organized Health Care Education/Training Program; Visit Provider Student in an Organized Health Care Education/Training Program
DX: L40.50 Arthropathic psoriasis, unspecified (principal)
CPT/HCPCS: 36415; 80048; 80076; 85027; 86140

== ENCOUNTER 2020-11-21 04:28 | Outpatient (CLI) | payer OTHER, SELFPAY ==
[2020-11-21 10:23] LABS: ESR 1 mm/hr (0-30)
[2020-11-21 10:28] LABS: Abs Immature Grans 0.02 10^3/uL (0.0-0.06); Absolute Basophil Count 0.03 10^3/uL (0.0-0.2); Absolute Eosinophil Count 0.06 10^3/uL (0.0-0.7); Absolute Lymphocyte Count 1.75 10^3/uL (1.2-3.4); Absolute Monocyte Count 0.43 10^3/uL (0.1-0.8); Absolute Neutrophil Count 2.54 10^3/uL (1.2-6.7); Basophils % 0.6; Eosinophils % 1.2; HCT 40.1 % (36.0-46.0); HGB 13.2 g/dL (11.2-15.7); Immature Grans % 0.4; Lymphocytes % 36.2; MCH 30.3 pg (27.0-33.0); MCHC 32.9 % (32.0-36.0); MPV 10.1 fL (8.0-11.0); Monocytes % 8.9; Neutrophils % 52.7; Nucleated RBC 0 %; Platelet Count 198 10^3/uL (130-400); RBC 4.36 10^6/uL (3.93-5.22); RDW 13.3 % (11.7-14.6); RDW-SD 45.4 fL; WBC 4.83 10^3/uL (4.4-10.8)
[2020-11-21 10:38] LABS: ALT 99 U/L (14-59); AST 46 U/L (15-37); Albumin 3.7 g/dL (3.4-5.0); Alkaline Phosphatase 117 U/L (46-116); Anion Gap 4.7 mmol/L (3-11); BUN 17 mg/dL (7-18); Bilirubin, Total 0.6 mg/dL (0.2-1.0); C-Reactive Protein 0.38 mg/dL (0.0-0.3); CO2 31.3 mmol/L (21.0-32.0); CREATININE 0.8 mg/dL (0.55-1.02); Calcium 9.1 mg/dL (8.5-10.1); Chloride 107 mmol/L (98-107); Glucose 101 mg/dL (74-106); Sodium 143 mmol/L (136-145); Total Protein 6.9 g/dL (6.4-8.2)
== END 2020-11-21 04:29 | disposition home or self-care (01) ==
LOC: LBO 04:28
PROVIDERS: PCP Student in an Organized Health Care Education/Training Program; Visit Provider Internal Medicine
DX: L40.50 Arthropathic psoriasis, unspecified (principal); M89.49 Other hypertrophic osteoarthropathy, multiple sites; Z79.899 Other long term (current) drug therapy
CPT/HCPCS: 36415; 80053; 85652; 85025; 86140

== ENCOUNTER 2021-02-21 03:48 | Outpatient (CLI) | payer OTHER, SELFPAY ==
[2021-02-21 12:49] LABS: Abs Immature Grans 0.01 10^3/uL (0.0-0.06); Absolute Basophil Count 0.04 10^3/uL (0.0-0.2); Absolute Lymphocyte Count 2.34 10^3/uL (1.2-3.4); Absolute Monocyte Count 0.42 10^3/uL (0.1-0.8); Absolute Neutrophil Count 2.04 10^3/uL (1.2-6.7); Basophils % 0.8; HCT 41.2 % (36.0-46.0); HGB 13.6 g/dL (11.2-15.7); Immature Grans % 0.2; Lymphocytes % 47.3; MCH 30.8 pg (27.0-33.0); MCV 93.2 fL (80-95); MPV 9.9 fL (8.0-11.0); Monocytes % 8.5; Neutrophils % 41.2; Nucleated RBC 0 %; Platelet Count 198 10^3/uL (130-400); RBC 4.42 10^6/uL (3.93-5.22); RDW 13.2 % (11.7-14.6); RDW-SD 45.6 fL; WBC 4.95 10^3/uL (4.4-10.8)
[2021-02-21 12:50] LABS: ESR 3 mm/hr (0-30)
[2021-02-21 13:30] LABS: ALT 117 U/L (14-59); AST 58 U/L (15-37); Albumin 3.9 g/dL (3.4-5.0); Alkaline Phosphatase 120 U/L (46-116); Anion Gap 6.5 mmol/L (3-11); BUN 20 mg/dL (7-18); Bilirubin, Total 0.6 mg/dL (0.2-1.0); C-Reactive Protein 0.35 mg/dL (0.0-0.3); CO2 29.5 mmol/L (21.0-32.0); CREATININE 0.8 mg/dL (0.55-1.02); Chloride 106 mmol/L (98-107); Glucose 130 mg/dL (74-106); Sodium 142 mmol/L (136-145); Total Protein 6.9 g/dL (6.4-8.2)
[2021-02-21 13:47] LABS: Vitamin D 25 Total 32.9 ng/mL (30-100)
== END 2021-02-21 03:49 | disposition home or self-care (01) ==
LOC: LBO 03:48
PROVIDERS: PCP Student in an Organized Health Care Education/Training Program; Visit Provider Internal Medicine
DX: E55.9 Vitamin D deficiency, unspecified (principal); L40.50 Arthropathic psoriasis, unspecified; Z79.899 Other long term (current) drug therapy; M89.49 Other hypertrophic osteoarthropathy, multiple sites
CPT/HCPCS: 36415; 80053; 80061; 82306; 85652; 85025; 86140

== ENCOUNTER 2021-04-05 02:18 | Outpatient (CLI) | payer OTHER, SELFPAY ==
[2021-04-05 16:52] LABS: Abs Immature Grans 0.02 10^3/uL (0.0-0.06); Absolute Basophil Count 0.06 10^3/uL (0.0-0.2); Absolute Eosinophil Count 0.18 10^3/uL (0.0-0.7); Absolute Lymphocyte Count 2.16 10^3/uL (1.2-3.4); Absolute Neutrophil Count 2.74 10^3/uL (1.2-6.7); Basophils % 1.1; Eosinophils % 3.2; HCT 42.9 % (36.0-46.0); HGB 14.1 g/dL (11.2-15.7); Immature Grans % 0.4; Lymphocytes % 38.2; MCH 30.7 pg (27.0-33.0); MCHC 32.9 % (32.0-36.0); MCV 93.3 fL (80-95); Monocytes % 8.8; Neutrophils % 48.3; Nucleated RBC 0 %; Platelet Count 211 10^3/uL (130-400); RDW 12.8 % (11.7-14.6); RDW-SD 43.9 fL; WBC 5.66 10^3/uL (4.4-10.8)
[2021-04-05 17:04] LABS: ESR 3 mm/hr (0-30)
[2021-04-05 17:36] LABS: ALT 108 U/L (14-59); AST 60 U/L (15-37); Albumin 3.9 g/dL (3.4-5.0); Alkaline Phosphatase 122 U/L (46-116); Anion Gap 5.5 mmol/L (3-11); BUN 29 mg/dL (7-18); Bilirubin, Direct 0.1 mg/dL (0.0-0.2); Bilirubin, Total 0.3 mg/dL (0.2-1.0); CO2 29.5 mmol/L (21.0-32.0); CREATININE 0.9 mg/dL (0.55-1.02); Calcium 8.9 mg/dL (8.5-10.1); Chloride 107 mmol/L (98-107); Glucose 120 mg/dL (74-106); Sodium 142 mmol/L (136-145); Total Protein 7.1 g/dL (6.4-8.2)
== END 2021-04-05 02:19 | disposition home or self-care (01) ==
LOC: LBO 02:18
PROVIDERS: PCP Student in an Organized Health Care Education/Training Program; Visit Provider Internal Medicine
DX: Z79.899 Other long term (current) drug therapy (principal); L40.50 Arthropathic psoriasis, unspecified; M89.49 Other hypertrophic osteoarthropathy, multiple sites
CPT/HCPCS: 36415; 80053; 80076; 85652; 85025; 86140

== ENCOUNTER 2021-04-16 13:05 | Outpatient (CLI) | payer OTHER, SELFPAY ==
[2021-04-17 10:11] LABS: Hepatitis B Surface Ag Negative (Negative)
[2021-04-17 10:43] LABS: Hepatitis C Ab w Rflx HCV PCR Negative (Negative)
[2021-04-17 12:06] LABS: Hep B Core Antibody Negative (Negative)
== END 2021-04-16 13:06 | disposition home or self-care (01) ==
LOC: LBO 13:05
PROVIDERS: PCP Student in an Organized Health Care Education/Training Program; Visit Provider Internal Medicine
DX: L40.50 Arthropathic psoriasis, unspecified (principal); M89.49 Other hypertrophic osteoarthropathy, multiple sites; Z79.899 Other long term (current) drug therapy; Z01.84 Encounter for antibody response examination
CPT/HCPCS: 36415; 86704; 86803; 87340

== ENCOUNTER 2021-07-11 18:19 | Outpatient (REF) | payer OTHER, SELFPAY ==
[2021-07-11 14:12] LABS: Source Nasal/Nares
[2021-07-11 15:06] LABS: COVID-19 PCR POSITIVE (Negative)
== END 2021-07-11 18:20 | disposition home or self-care (01) ==
LOC: LBN 18:19
PROVIDERS: PCP Student in an Organized Health Care Education/Training Program; Visit Provider Obstetrics & Gynecology
DX: Z20.822 Contact with and (suspected) exposure to COVID-19 (principal)
CPT/HCPCS: 87635

== ENCOUNTER 2021-08-26 03:07 | Outpatient (CLI) | payer OTHER, SELFPAY ==
[2021-08-26 16:06] LABS: Abs Immature Grans 0.01 10^3/uL (0.0-0.06); Absolute Basophil Count 0.05 10^3/uL (0.0-0.2); Absolute Eosinophil Count 0.09 10^3/uL (0.0-0.7); Absolute Lymphocyte Count 1.64 10^3/uL (1.2-3.4); Absolute Monocyte Count 0.45 10^3/uL (0.1-0.8); Absolute Neutrophil Count 3.21 10^3/uL (1.2-6.7); Basophils % 0.9; Eosinophils % 1.7; HCT 42.9 % (36.0-46.0); HGB 14.1 g/dL (11.2-15.7); Immature Grans % 0.2; Lymphocytes % 30.1; MCH 29.7 pg (27.0-33.0); MCHC 32.9 % (32.0-36.0); MCV 90.5 fL (80-95); MPV 9.4 fL (8.0-11.0); Monocytes % 8.3; Neutrophils % 58.8; Nucleated RBC 0 %; Platelet Count 211 10^3/uL (130-400); RBC 4.74 10^6/uL (3.93-5.22); RDW 13.4 % (11.7-14.6); RDW-SD 44.6 fL; WBC 5.45 10^3/uL (4.4-10.8)
[2021-08-26 16:07] LABS: ESR 4 mm/hr (0-30)
[2021-08-26 18:41] LABS: ALT 110 U/L (14-59); AST 54 U/L (15-37); Albumin 3.9 g/dL (3.4-5.0); Alkaline Phosphatase 117 U/L (46-116); Anion Gap 9.6 mmol/L (3-11); BUN 24 mg/dL (7-18); Bilirubin, Total 0.6 mg/dL (0.2-1.0); C-Reactive Protein 0.28 mg/dL (0.0-0.3); CO2 25.4 mmol/L (21.0-32.0); CREATININE 0.8 mg/dL (0.55-1.02); Calcium 9.1 mg/dL (8.5-10.1); Chloride 107 mmol/L (98-107); Glucose 125 mg/dL (74-106); Potassium 3.7 mmol/L (3.5-5.1); Sodium 142 mmol/L (136-145); Total Protein 7.2 g/dL (6.4-8.2)
== END 2021-08-26 03:08 | disposition home or self-care (01) ==
LOC: LBO 03:07
PROVIDERS: PCP Student in an Organized Health Care Education/Training Program; Visit Provider Internal Medicine
DX: L40.50 Arthropathic psoriasis, unspecified (principal); M89.49 Other hypertrophic osteoarthropathy, multiple sites; Z79.899 Other long term (current) drug therapy
CPT/HCPCS: 36415; 80053; 85652; 85025; 86140

== ENCOUNTER 2021-11-07 15:35 | Outpatient (REF) | payer OTHER, SELFPAY ==
[2021-11-07 14:26] LABS: Source Nasal/Nares
[2021-11-07 15:31] LABS: COVID-19 PCR Negative (Negative)
== END 2021-11-07 15:36 | disposition home or self-care (01) ==
LOC: NCHCN 15:35
PROVIDERS: PCP Student in an Organized Health Care Education/Training Program; Visit Provider Obstetrics & Gynecology
DX: Z20.822 Contact with and (suspected) exposure to COVID-19 (principal)
CPT/HCPCS: 87635

== ENCOUNTER → 2021-11-13 01:30 | Outpatient (CLI) | payer OTHER, SELFPAY ==
--- NOTE | 2021-11-13 06:45 | DI.MAMMO_ITS ---
Exam(s) MAMMO SCREENING EXAM: MAMMO SCREENING CLINICAL HISTORY: screening, Z12.39. TECHNIQUE: Bilateral full field digital CC and MLO mammographic images were obtained with 3D tomosyn thesis and utilizing computer aided detection (CAD). COMPARISON: Prior mammograms were reviewed, the most recent being April 2020. Significant family history. Mother was diagnosed with breast cancer FINDINGS: In the right breast there is a new lobulated noncalcified density located inferiorly, approximately 1 1 cm in from the nipple, this asymmetric density measuring approximately 11 x 8 millimeters. Ultraso und recommended. In the opposite-left breast multiple small nodular densities more evident than on p rior studies, the largest measuring 5 millimeters and located 11 cm in from the nipple on the CC view . There are no malignant-appearing microcalcification groups in either breast. No new architectural di stortion or skin thickening-retraction IMPRESSION: There is a new 11 x 8 millimeter lobulated noncalcified nodule inferiorly in the right breast. There also a few small new nodules in the opposite-left breast. Spot compression views and complete bilateral breast ultrasound recommended BI-RADS Category 0 - Assessment Incomplete: Need additional imaging evaluation Breast Density - Category B - Scattered areas of fibroglandular density Breast density Category C or D implies that the patient has dense breast tissue. Dense breast tissue can make it harder to find cancer on a mammogram. Dense breast tissue is also associated with an incr eased risk of breast cancer. This information about the result of the mammogram report was provided to the patient to raise their awareness. Use this report when you speak with the patient about their risks for breast cancer, which includes their family history. At that time, you may recommend additional screening tests (Ultrasoun d or MRI) as these tests may add significant information. A negative radiographic report should not delay biopsy if a dominant or clinically suspicious mass is present. Up to ten percent of cancers are not identified on mammography. A negative report may reinforce clinical impression. Adenosis and dense breasts may obscure an underlying neoplasm. False positive reports average 6 to 10%. Patient will receive a letter notifying them of these results.
== END ==
PROVIDERS: PCP Student in an Organized Health Care Education/Training Program; Visit Provider Student in an Organized Health Care Education/Training Program
DX: Z12.31 Encounter for screening mammogram for malignant neoplasm of breast (principal); R92.8 Other abnormal and inconclusive findings on diagnostic imaging of breast
CPT/HCPCS: 77063; 77067

== ENCOUNTER → 2021-11-27 03:12 | Outpatient (CLI) | payer OTHER, SELFPAY ==
--- NOTE | 2021-11-27 10:10 | DI.MAMMO_ITS ---
Exam(s) US BREAST LT COMPLETE US BREAST RT LIMITED MG MAMMO SCREEN CALL BACK BI EXAM: US BREAST LT COMPLETE CLINICAL HISTORY: FEW SMALL NEW NODULES IN LT BREAST TECHNIQUE: Ultrasound performed using standard protocol. COMPARISON: US US PELVIS TRANSVAGINAL from 01/27/2019 US US BREAST RT LIMITED from 11/27/2021 FINDINGS: Additional mammographic views of right and left breast and bilateral breast ultrasound was performed. Recent mammogram showed a lobulated mass in the 6 o'clock position in the right breast. Additional m ammographic views confirm this is well circumscribed. This corresponds to a 6 millimeter in diameter septated cyst in the 6 o'clock position 4 cm from the nipple on ultrasound. Additionally there is a 10 millimeter in diameter cyst seen in the 7 o'clock position in the right breast about 4 cm from th e nipple. In the left breast, additional mammographic views show a couple of tiny well-circumscribed nodules an d ultrasound showsmultiple small cysts, additionally a presumed lymph node is present in the upper ou ter quadrant of the left breast. No solid suspicious mass lesion identified. IMPRESSION: No specific evidence of malignancy at this time. Routine screening mammogram recommended. BI-RADS Cat 2 - Benign Findings Breast Density - Category B - Scattered areas of fibroglandular density DATA REPOSITORY:
== END ==
PROVIDERS: PCP Student in an Organized Health Care Education/Training Program; Visit Provider Student in an Organized Health Care Education/Training Program
DX: Z12.31 Encounter for screening mammogram for malignant neoplasm of breast (principal); R92.8 Other abnormal and inconclusive findings on diagnostic imaging of breast; N60.11 Diffuse cystic mastopathy of right breast; N60.12 Diffuse cystic mastopathy of left breast; N64.59 Other signs and symptoms in breast
CPT/HCPCS: 76642; 77063; 77067

== ENCOUNTER 2021-12-05 13:56 | Outpatient (REF) | payer OTHER, SELFPAY ==
[2021-12-05 14:45] LABS: Source Nasal/Nares
[2021-12-05 15:39] LABS: COVID-19 PCR Negative (Negative)
== END 2021-12-05 13:57 | disposition home or self-care (01) ==
LOC: LBN 13:56
PROVIDERS: PCP Student in an Organized Health Care Education/Training Program; Visit Provider Obstetrics & Gynecology
DX: Z20.822 Contact with and (suspected) exposure to COVID-19 (principal)
CPT/HCPCS: 87635

== ENCOUNTER → 2021-12-11 11:51 | Outpatient (CLI) | payer OTHER, SELFPAY ==
--- NOTE | 2021-12-11 | DI.RAD_ITS ---
Exam(s) XR ARTHRITIS SERIES EXAM: XR ARTHRITIS SERIES CLINICAL HISTORY: PSORIATIC ARTHRITIS L40.50 HIGH GEMMA MED USE Z79.899 OSTEOARTHRITIS M15.9. TECHNIQUE: 2D digital imaging was performed. COMPARISON: CR XR HAND RT COMPLETE from 08/30/2019 FINDINGS: Two views of both hands including PA and [place] views. RIGHT HAND: There is no evidence of fracture. Some narrowing of the metacarpophalangeal joint of the 4th-ring finger is again noted, slightly increased. More advanced narrowing and degenerative findin gs noted in the interphalangeal joints. Fusion across the DIP joint of the 4th-ring finger is again noted. There has been significant progression of changes the PIP joint of the 4th finger. Other art iculations appear unchanged. No obvious erosions. No obvious degenerative changes evident at the 1st carpometacarpal joint, this being the articulation between the thumb metacarpal and trapezium. The MCP joint and interphalangeal joint of the thumb al so appear un remarkable LEFT HAND: Minimal findings at the 1st carpometacarpal joint and other articulations of the thumb. T he metacarpophalangeal joints appear unremarkable. Advanced changes in the interphalangeal joints ar e noted. No ankylosis. No obvious erosions. No radiopaque foreign body. IMPRESSION: Degenerative changes most prominent in the interphalangeal joints with relative sparing of the metaca rpophalangeal joints as well as the carpal row articulations. Also sparing of the 1st carpometacarpal joints bilaterally. DATA REPOSITORY: RADIATION DOSE DELIVERED:
== END ==
PROVIDERS: PCP Student in an Organized Health Care Education/Training Program; Visit Provider Internal Medicine
DX: L40.50 Arthropathic psoriasis, unspecified (principal); Z79.899 Other long term (current) drug therapy; M25.841 Other specified joint disorders, right hand; M25.842 Other specified joint disorders, left hand; M15.8 Other polyosteoarthritis
CPT/HCPCS: 73120

== ENCOUNTER 2021-12-13 01:52 | Outpatient (CLI) | payer OTHER, SELFPAY ==
[2021-12-13 09:21] LABS: Hemoglobin A1C 6.2 % (<5.7)
[2021-12-13 09:25] LABS: ESR 1 mm/hr (0-30)
[2021-12-13 09:38] LABS: ALT 107 U/L (14-59); AST 65 U/L (15-37); Albumin 3.6 g/dL (3.4-5.0); Alkaline Phosphatase 113 U/L (46-116); Anion Gap 8.6 mmol/L (3-11); BUN 20 mg/dL (7-18); Bilirubin, Direct 0.1 mg/dL (0.0-0.2); Bilirubin, Total 0.5 mg/dL (0.2-1.0); C-Reactive Protein 0.48 mg/dL (0.0-0.3); CO2 25.4 mmol/L (21.0-32.0); CREATININE 0.8 mg/dL (0.55-1.02); Calcium 9.2 mg/dL (8.5-10.1); Chloride 108 mmol/L (98-107); Glucose 119 mg/dL (74-106); Potassium 3.8 mmol/L (3.5-5.1); Sodium 142 mmol/L (136-145); Total Protein 7.1 g/dL (6.4-8.2)
[2021-12-13 09:45] LABS: Iron 62 ug/dL (50-170); Total Iron Binding Capacity 345 ug/dL (250-450)
[2021-12-13 10:01] LABS: Ferritin 130 ng/mL (8-252)
[2021-12-16 09:47] LABS: IgA 234 mg/dL (85-499); IgG 979 mg/dL (610-1,616)
[2021-12-16 09:48] LABS: Alpha 1 Antitrypsin,Serum 134 mg/dL (90-200)
[2021-12-16 14:32] LABS: Tissue Transglutaminase Ab IgA <1.2 U/mL
[2021-12-16 14:47] LABS: ANA Interpretation Negative (Negative)
[2021-12-16 16:22] LABS: Smooth Muscle Ab Screen Negative (Negative)
== END 2021-12-13 01:53 | disposition home or self-care (01) ==
LOC: LBO 01:52
PROVIDERS: PCP Student in an Organized Health Care Education/Training Program; Visit Provider Nurse Practitioner Adult Health
DX: R74.8 Abnormal levels of other serum enzymes (principal); Z79.899 Other long term (current) drug therapy; M89.49 Other hypertrophic osteoarthropathy, multiple sites; L40.59 Other psoriatic arthropathy
CPT/HCPCS: 36415; 80053; 80076; 82784; 85652; 82103; 82728; 83036; 83516; 83540; 83550; 86038; 86140; 86255

== ENCOUNTER 2022-03-24 13:45 | Outpatient (REF) | payer OTHER, SELFPAY ==
[2022-03-24 10:52] LABS: Source Nasal/Nares
[2022-03-24 11:41] LABS: COVID-19 PCR Negative (Negative)
== END 2022-03-24 13:46 | disposition home or self-care (01) ==
LOC: LBN 13:45
PROVIDERS: PCP Student in an Organized Health Care Education/Training Program; Visit Provider Obstetrics & Gynecology
DX: Z20.822 Contact with and (suspected) exposure to COVID-19 (principal)
CPT/HCPCS: 87635

== ENCOUNTER 2022-04-17 04:01 | Outpatient (CLI) | payer OTHER, SELFPAY ==
[2022-04-17 12:28] LABS: Abs Immature Grans 0.01 10^3/uL (0.0-0.06); Absolute Basophil Count 0.05 10^3/uL (0.0-0.2); Absolute Eosinophil Count 0.15 10^3/uL (0.0-0.7); Absolute Lymphocyte Count 1.74 10^3/uL (1.2-3.4); Absolute Monocyte Count 0.43 10^3/uL (0.1-0.8); Absolute Neutrophil Count 2.59 10^3/uL (1.2-6.7); HCT 43.9 % (36.0-46.0); HGB 14.5 g/dL (11.2-15.7); Immature Grans % 0.2; MCH 30.4 pg (27.0-33.0); MCV 92 fL (80-95); Monocytes % 8.7; Neutrophils % 52.1; Platelet Count 197 10^3/uL (130-400); RBC 4.77 10^6/uL (3.93-5.22); RDW 13.7 % (11.7-14.6); RDW-SD 47.1 fL; WBC 4.97 10^3/uL (4.4-10.8)
[2022-04-17 12:42] LABS: Prothrombin Time 10.3 sec (9.3-11.0)
[2022-04-17 13:21] LABS: ALT 109 U/L (14-59); AST 63 U/L (15-37); Albumin 3.9 g/dL (3.4-5.0); Alkaline Phosphatase 96 U/L (46-116); Anion Gap 7.5 mmol/L (3-11); BUN 23 mg/dL (7-18); Bilirubin, Total 0.7 mg/dL (0.2-1.0); CO2 29.5 mmol/L (21.0-32.0); CREATININE 0.9 mg/dL (0.55-1.02); Calcium 9.5 mg/dL (8.5-10.1); Chloride 105 mmol/L (98-107); Estimated GFR 74.57 (mL/min/1.73m2); Glucose 102 mg/dL (74-106); Potassium 4.1 mmol/L (3.5-5.1); Sodium 142 mmol/L (136-145); Total Protein 7.7 g/dL (6.4-8.2)
== END 2022-04-17 04:02 | disposition home or self-care (01) ==
LOC: LBO 04:02
PROVIDERS: PCP Student in an Organized Health Care Education/Training Program; Visit Provider Nurse Practitioner Adult Health
DX: K75.81 Nonalcoholic steatohepatitis (NASH) (principal)
CPT/HCPCS: 36415; 80053; 85025; 85610

== ENCOUNTER 2022-04-21 16:41 | Outpatient (CLI) | payer OTHER, SELFPAY ==
[2022-04-21 16:52] LABS: ESR 6 mm/hr (0-30)
[2022-04-21 17:02] LABS: C-Reactive Protein 0.75 mg/dL (0.0-0.3)
[2022-04-23 09:24] LABS: HBs Antibody, Quant 377.8 mIU/mL (See Note); Hepatitis B Surface Ab Positive (See Note)
[2022-04-23 09:33] LABS: Hepatitis B Surface Ag Negative (Negative)
[2022-04-23 10:07] LABS: Hep B Core Antibody Negative (Negative)
== END 2022-04-21 16:42 | disposition home or self-care (01) ==
LOC: LBO 16:41
PROVIDERS: PCP Student in an Organized Health Care Education/Training Program; Visit Provider Internal Medicine
DX: L40.50 Arthropathic psoriasis, unspecified (principal); Z79.899 Other long term (current) drug therapy
CPT/HCPCS: 36415; 85652; 86704; 86706; 87340; 86140

== ENCOUNTER 2022-08-07 01:57 | Outpatient (CLI) | payer OTHER, SELFPAY ==
[2022-08-07 08:50] LABS: Abs Immature Grans 0.01 10^3/uL (0.0-0.06); Absolute Basophil Count 0.04 10^3/uL (0.0-0.2); Absolute Eosinophil Count 0.18 10^3/uL (0.0-0.7); Absolute Lymphocyte Count 1.76 10^3/uL (1.2-3.4); Absolute Monocyte Count 0.37 10^3/uL (0.1-0.8); Absolute Neutrophil Count 1.83 10^3/uL (1.2-6.7); Eosinophils % 4.3; HCT 39.8 % (36.0-46.0); HGB 12.6 g/dL (11.2-15.7); Immature Grans % 0.2; MCH 29.2 pg (27.0-33.0); MCHC 31.7 % (32.0-36.0); MCV 92 fL (80-95); MPV 9.9 fL (8.0-11.0); Monocytes % 8.8; Neutrophils % 43.7; Platelet Count 191 10^3/uL (130-400); RBC 4.31 10^6/uL (3.93-5.22); RDW 13.2 % (11.7-14.6); RDW-SD 45.1 fL; WBC 4.19 10^3/uL (4.4-10.8)
[2022-08-07 09:01] LABS: Prothrombin Time 9.9 sec (9.3-11.0)
[2022-08-07 09:20] LABS: ALT 75 U/L (14-59); AST 50 U/L (15-37); Albumin 3.6 g/dL (3.4-5.0); Alkaline Phosphatase 86 U/L (46-116); Anion Gap 9.2 mmol/L (3-11); BUN 17 mg/dL (7-18); Bilirubin, Total 0.7 mg/dL (0.2-1.0); CO2 26.8 mmol/L (21.0-32.0); CREATININE 0.8 mg/dL (0.55-1.02); Calcium 9.3 mg/dL (8.5-10.1); Chloride 106 mmol/L (98-107); Estimated GFR 85.89 (mL/min/1.73m2); Glucose 121 mg/dL (74-106); Hemoglobin A1C 5.7 % (<5.7); Potassium 4.1 mmol/L (3.5-5.1); Sodium 142 mmol/L (136-145); Total Protein 6.9 g/dL (6.4-8.2)
[2022-08-07 09:30] LABS: TSH (W/Ref FT4) 2.06 uIU/mL (0.36-3.74)
[2022-08-07 09:38] LABS: Folate > 20.0 ng/mL (8.6-20.0)
[2022-08-07 09:50] LABS: Vitamin D 25 Total 34.8 ng/mL (30-100)
[2022-08-07 18:52] LABS: FSH 47.4 mIU/mL (See Note)
== END 2022-08-07 01:58 | disposition home or self-care (01) ==
LOC: LBO 01:59
PROVIDERS: Nurse Practitioner Women's Health; PCP Student in an Organized Health Care Education/Training Program; Visit Provider Nurse Practitioner Adult Health
DX: R53.83 Other fatigue (principal); L40.50 Arthropathic psoriasis, unspecified; M15.4 Erosive (osteo)arthritis; Z91.89 Other specified personal risk factors, not elsewhere classified; N91.2 Amenorrhea, unspecified; N95.1 Menopausal and female climacteric states; K75.81 Nonalcoholic steatohepatitis (NASH)
CPT/HCPCS: 36415; 80053; 82306; 82746; 83001; 83036; 84443; 85025; 85610

== ENCOUNTER 2022-09-24 13:16 | Outpatient (REF) | payer OTHER, SELFPAY ==
[2022-09-24 12:16] LABS: Influenza A PCR Negative (Negative); Influenza B PCR Negative (Negative); RSV PCR Negative (Negative)
[2022-09-24 12:23] LABS: COVID-19 PCR Positive (Negative); Source Nasopharynx
== END 2022-09-24 13:17 | disposition home or self-care (01) ==
LOC: LBN 13:16
PROVIDERS: PCP Student in an Organized Health Care Education/Training Program; Visit Provider Obstetrics & Gynecology
DX: R09.89 Other specified symptoms and signs involving the circulatory and respiratory systems (principal); Z20.822 Contact with and (suspected) exposure to COVID-19
CPT/HCPCS: 87637

== ENCOUNTER 2022-11-14 09:20 | Outpatient (CLI) | payer OTHER, SELFPAY ==
[2022-11-14 09:06] LABS: ESR 1 mm/hr (0-30)
[2022-11-14 09:07] LABS: Abs Immature Grans 0.02 10^3/uL (0.0-0.06); Absolute Basophil Count 0.04 10^3/uL (0.0-0.2); Absolute Eosinophil Count 0.17 10^3/uL (0.0-0.7); Absolute Lymphocyte Count 1.98 10^3/uL (1.2-3.4); Absolute Monocyte Count 0.45 10^3/uL (0.1-0.8); Basophils % 0.8; Eosinophils % 3.4; HCT 42.5 % (36.0-46.0); HGB 13.9 g/dL (11.2-15.7); Immature Grans % 0.4; Lymphocytes % 39.9; MCH 28.9 pg (27.0-33.0); MCHC 32.7 % (32.0-36.0); MCV 88 fL (80-95); Monocytes % 9.1; Neutrophils % 46.4; Platelet Count 189 10^3/uL (130-400); RBC 4.81 10^6/uL (3.93-5.22); WBC 4.96 10^3/uL (4.4-10.8)
[2022-11-14 09:34] LABS: ALT 66 U/L (14-59); AST 30 U/L (15-37); Albumin 3.6 g/dL (3.4-5.0); Alkaline Phosphatase 90 U/L (46-116); Anion Gap 6.7 mmol/L (3-11); BUN 22 mg/dL (7-18); Bilirubin, Total 0.3 mg/dL (0.2-1.0); CO2 30.3 mmol/L (21.0-32.0); CREATININE 0.8 mg/dL (0.55-1.02); Calcium 8.9 mg/dL (8.5-10.1); Chloride 106 mmol/L (98-107); Estimated GFR 85.89 (mL/min/1.73m2); Glucose 106 mg/dL (74-106); Sodium 143 mmol/L (136-145); Total Protein 7.2 g/dL (6.4-8.2)
[2022-11-14 11:09] LABS: Hemoglobin A1C 6.3 % (<5.7)
[2022-11-17 10:43] LABS: HBs Antibody, Quant 372.3 mIU/mL (See Note); Hepatitis B Surface Ab Positive (See Note)
[2022-11-17 10:56] LABS: Hepatitis B Surface Ag Negative (Negative)
[2022-11-17 11:33] LABS: Hep B Core Antibody Negative (Negative)
== END 2022-11-14 09:21 | disposition home or self-care (01) ==
LOC: LBO 09:22
PROVIDERS: PCP Student in an Organized Health Care Education/Training Program; Visit Provider Internal Medicine
DX: K75.81 Nonalcoholic steatohepatitis (NASH) (principal); L40.50 Arthropathic psoriasis, unspecified; Z79.899 Other long term (current) drug therapy
CPT/HCPCS: 36415; 80053; 85652; 86704; 86706; 87340; 83036; 85025

== ENCOUNTER 2023-01-15 01:27 | Outpatient (CLI) | payer OTHER, SELFPAY ==
--- NOTE | 2023-01-15 12:25 | DI.RAD_ITS ---
Exam(s) XR CERVICAL SP CLAY TRAUMA 2-3V EXAM: XR CERVICAL SP CLAY TRAUMA 2-3V CLINICAL HISTORY: PSORIATIC ARTHRITIS, L40.50,INCREASED RADICULAR SYMPTOMS ON RT,H/O OA AND. TECHNIQUE: 2D digital imaging was performed. Five images were obtained. AP, odontoid and lateral i mages were obtained. COMPARISON: No exams were available for comparison FINDINGS: The odontoid is intact. The lateral masses are well aligned. There is straightening of the normal ce rvical lordosis. This may be due to muscle spasm or patient positioning. There is fusion of the C4- C5 vertebral bodies and posterior elements. Disc space narrowing is seen at C5-6 and C6-C7. Endplat e osteophytes are seen at C3-C4, C5-C6 and C6-C7. No significant neural foraminal stenosis is present . The cervical thoracic junction is well maintained. The prevertebral soft tissues are unremarkable . Lung apices are clear. IMPRESSION: Mild degenerative changes seen in the cervical spine. DATA REPOSITORY: RADIATION DOSE DELIVERED:
== END 2023-01-15 01:47 ==
LOC: DI 01:28
PROVIDERS: PCP Student in an Organized Health Care Education/Training Program; Visit Provider Internal Medicine
DX: M50.322 Other cervical disc degeneration at C5-C6 level (principal); M50.323 Other cervical disc degeneration at C6-C7 level; M25.78 Osteophyte, vertebrae
CPT/HCPCS: 72040

== ENCOUNTER 2023-01-27 12:30 | Outpatient (REF) | payer OTHER, SELFPAY ==
--- NOTE | 2023-01-27 11:15 | PAPFT_PTH ---
PATIENT: Marissa Zuluaga LOC: [facility] U#:[id number] AGE/SX: 57/F ROOM: RE01/27/[address]: Seda Estrada DO : 1965 BED: DIS: 01/27/2023 SPEC #: [id number] RECD: 01/27/23 17:32 STATUS: MACHELLE VITAL #: [id number] JOSÉ MANUEL: 01/27/23 11:[address]: Seda Estrada [facility]PT: [facility] Cytology RECD BY: Amy Odell Tissues: 1 - CX/ENDOCX FOR PAP SMEARS Procedures: PAP THIN PREP/[facility] Screening HPV DNA PROBE Comments: [id number]
== END 2023-01-27 12:31 | disposition home or self-care (01) ==
LOC: LBN 12:30
PROVIDERS: PCP Student in an Organized Health Care Education/Training Program; Visit Provider Student in an Organized Health Care Education/Training Program
DX: Z12.4 Encounter for screening for malignant neoplasm of cervix (principal); Z11.51 Encounter for screening for human papillomavirus (HPV)
CPT/HCPCS: 88142; 87624

== ENCOUNTER → 2023-03-16 02:40 | Outpatient (CLI) | payer OTHER, SELFPAY ==
--- NOTE | 2023-03-16 07:30 | DI.DEXA_ITS ---
Exam(s) XR DEXA BONE DENSITY W/WO NIDIA EXAM: XR DEXA BONE DENSITY W/WO NIDIA CLINICAL HISTORY: EVAL BONE DENSITY, RISK FOR OSTEOPOROSIS,SCREENING FOR OSTEOPOROSIS,Z78.0 TECHNIQUE: COMPARISON: No exams were available for comparison FINDINGS: Lateral Spine Image: Unremarkable. No compression deformities identified. Left hip: Total T-Score: 0.1 Total Z-Score: 0.9 T- and Z-scores: Within normal limits. Lumbar Spine: Total T-Score: -0.4 Total Z-Score: 0.9 T- and Z-scores: Within normal limits. IMPRESSION: No evidence of osteoporosis.
== END ==
PROVIDERS: PCP Student in an Organized Health Care Education/Training Program; Visit Provider Student in an Organized Health Care Education/Training Program
DX: Z78.0 Asymptomatic menopausal state (principal); Z13.820 Encounter for screening for osteoporosis
CPT/HCPCS: 77080

== ENCOUNTER → 2023-04-23 12:13 | Outpatient (CLI) | payer OTHER, SELFPAY ==
--- NOTE | 2023-04-23 11:35 | DI.RAD_ITS ---
Exam(s) XR ANKLE RT COMPLETE EXAM: XR ANKLE RT COMPLETE CLINICAL HISTORY: Pain in right ankle and feet M19.90 M25.571 M25.752 M79.671. TECHNIQUE: 2D digital imaging was performed. Three views. COMPARISON: CR XR ANKLE LT COMPLETE from 04/23/2023 FINDINGS: BONES: Mild deformities of the distal tibial and fibular shafts could be related to remote fracture. No bony destructive lesion is seen. JOINTS: The ankle mortise is normally aligned. There is moderate to severe narrowing of the tibiota lar joint space greater medially. There is some irregularity at the talar dome is well as subchondra l cysts in the talus. There is narrowing of the patellar few [place] ir joint and periarticular spurrin g. Enthesophyte at Achilles insertion. Ossicle adjacent to cuboid. Small dorsal talar beak. SOFT TISSUE: Swelling laterally. 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 DATA REPOSITORY: RADIATION DOSE DELIVERED:
--- NOTE | 2023-04-23 11:35 | DI.RAD_ITS ---
Exam(s) XR FOOT LT COMPLETE EXAM: XR FOOT LT COMPLETE CLINICAL HISTORY: Pain in left foot. TECHNIQUE: 2D digital imaging was performed. Three views. COMPARISON: No exams were available for comparison FINDINGS: BONES: No acute fracture is present. No bony destructive lesion is seen. JOINTS: No dislocation present. Degenerative changes of the interphalangeal joints of the toes. Mi ld degenerative changes talonavicular and navicular cuneiform joints as well as 1st MTP joint. Enthe sophyte at Achilles insertion. Small enthesophyte at base of 5th metatarsal. SOFT TISSUE: Normal. IMPRESSION: Mild degenerative changes. DATA REPOSITORY: RADIATION DOSE DELIVERED:
--- NOTE | 2023-04-23 11:35 | DI.RAD_ITS ---
Exam(s) XR ANKLE LT COMPLETE EXAM: XR ANKLE LT COMPLETE CLINICAL HISTORY: Pain in left ankle TECHNIQUE: 2D digital imaging was performed. Three views. COMPARISON: No exams were available for comparison FINDINGS: BONES: No acute fracture is present. No bony destructive lesion is seen. Enthesophyte at Achilles ins ertion. JOINTS:The ankle mortise is normally aligned. Minimal narrowing of the tibiotalar joint. Talar dom e appears smooth. SOFT TISSUE: Normal. IMPRESSION: Unremarkable mild degenerative changes. DATA REPOSITORY: RADIATION DOSE DELIVERED:
--- NOTE | 2023-04-23 11:35 | DI.RAD_ITS ---
Exam(s) XR FOOT RT COMPLETE EXAM: XR FOOT RT COMPLETE CLINICAL HISTORY: Pain in right foot. TECHNIQUE: 2D digital imaging was performed. Three views. COMPARISON: CR XR FOOT LT COMPLETE from 04/23/2023 FINDINGS: BONES: No acute fracture is present. No bony destructive lesion is seen. Enthesophyte at Achilles in sertion. JOINTS: No dislocation present. Degenerative changes interphalangeal joints of the toes. Minimal de generative changes 1st MTP joint. No hallux valgus. SOFT TISSUE: Normal. IMPRESSION: Mild degenerative changes. DATA REPOSITORY: RADIATION DOSE DELIVERED:
== END ==
PROVIDERS: PCP Student in an Organized Health Care Education/Training Program; Visit Provider Podiatrist
DX: M25.572 Pain in left ankle and joints of left foot; M25.571 Pain in right ankle and joints of right foot
CPT/HCPCS: 73610; 73630

== ENCOUNTER 2023-08-12 12:46 | Outpatient (CLI) | payer OTHER, SELFPAY ==
[2023-08-12 09:02] LABS: Abs Immature Grans 0.02 10^3/uL (0.0-0.06); Absolute Basophil Count 0.05 10^3/uL (0.0-0.2); Absolute Eosinophil Count 0.15 10^3/uL (0.0-0.7); Absolute Lymphocyte Count 1.94 10^3/uL (1.2-3.4); Absolute Monocyte Count 0.45 10^3/uL (0.1-0.8); Absolute Neutrophil Count 2.61 10^3/uL (1.2-6.7); Eosinophils % 2.9; HCT 41.1 % (36.0-46.0); HGB 13.5 g/dL (11.2-15.7); Immature Grans % 0.4; Lymphocytes % 37.2; MCH 29.5 pg (27.0-33.0); MCHC 32.8 % (32.0-36.0); MCV 90 fL (80-95); Monocytes % 8.6; Neutrophils % 49.9; Platelet Count 207 10^3/uL (130-400); RBC 4.57 10^6/uL (3.93-5.22); RDW 13.5 % (11.7-14.6); WBC 5.22 10^3/uL (4.4-10.8)
[2023-08-12 09:51] LABS: Hemoglobin A1C 6.1 % (<5.7)
[2023-08-12 09:53] LABS: Magnesium 1.9 mg/dL (1.8-2.4)
[2023-08-12 09:57] LABS: ALT 49 U/L (14-59); AST 26 U/L (15-37); Albumin 3.5 g/dL (3.4-5.0); Alkaline Phosphatase 82 U/L (46-116); Anion Gap 9.7 mmol/L (3-11); BUN 22 mg/dL (7-18); Bilirubin, Total 0.7 mg/dL (0.2-1.0); CO2 27.3 mmol/L (21.0-32.0); CREATININE 0.8 mg/dL (0.55-1.02); Calcium 9.3 mg/dL (8.5-10.1); Chloride 107 mmol/L (98-107); Estimated GFR 85.35 (mL/min/1.73m2); Glucose 133 mg/dL (74-106); Potassium 3.9 mmol/L (3.5-5.1); Sodium 144 mmol/L (136-145); Total Protein 7.1 g/dL (6.4-8.2)
== END 2023-08-12 12:47 | disposition home or self-care (01) ==
LOC: LBO 12:46
PROVIDERS: Nurse Practitioner Adult Health; PCP Student in an Organized Health Care Education/Training Program; Visit Provider Student in an Organized Health Care Education/Training Program
DX: R73.09 Other abnormal glucose (principal); Z79.899 Other long term (current) drug therapy; Z91.89 Other specified personal risk factors, not elsewhere classified
CPT/HCPCS: 36415; 80053; 83036; 83735; 85025; 85610

== ENCOUNTER 2023-08-18 08:19 | Outpatient (REF) | payer OTHER, SELFPAY ==
[2023-08-18 09:03] LABS: COVID-19 PCR Negative (Negative); Influenza A PCR Negative (Negative); Influenza B PCR Negative (Negative); RSV PCR Negative (Negative)
[2023-08-18 09:12] LABS: Source Nasopharynx
== END 2023-08-18 08:20 | disposition home or self-care (01) ==
LOC: LBN 08:19
PROVIDERS: PCP Student in an Organized Health Care Education/Training Program; Visit Provider Obstetrics & Gynecology
DX: R09.81 Nasal congestion (principal); Z20.828 Contact with and (suspected) exposure to other viral communicable diseases
CPT/HCPCS: 87637

== ENCOUNTER 2024-01-20 09:15 | Emergency (ER) | payer OTHER, SELFPAY ==
[2024-01-20 09:28] VITALS: BP 138/82; PULSE 78; RESP 15; TEMP 36.6; O2SAT 98
--- NOTE | 2024-01-20 09:45 | ED.GENADUL_ITS ---
Discharge Plan Disposition Patient Disposition: Home Condition: Stable Discharge Details Clinical Impression: Laceration of left index finger w/o foreign body w/o damage to nail Primary Care Provider: Seda Estrada ED Provider: Kerri Canales Home Meds and New Rx's Prescriptions: Continued orphenadrine citrate 100 mg tablet extended release 100 mg PO BID PRN Patient Comments: uses PRN for muscle spasms azwtbdxcuq-vbnufogzctyvy-czxn 50-300-40 mg capsule 1 cap PO TID PRN (Reason: pain) Qty: 30 2RF (DME) Compact Compressor Nebulizer Misc See Rx Instructions .ROUTE .MEDSUPPLY Qty: 1 0RF Rx Instructions: As directed milk thistle 150 mg capsule 150 mg PO BID Qty: 1 0RF Rx Instructions: give with meal/snack (DME) Migrovent on HOLD See Rx Instructions .Route .MEDSUPPLY Qty: 1 0RF Rx Instructions: on hold per KG 2' liver (preventive for migraine) Enbrel 50 mg/mL (1 mL) syringe 50 mg subcut QWEEK Patient Comments: 01/18/23 [facility] [place] RHEUM NOTE.HE 01/14/23 rheum note. trial switch from humira. rizatriptan [Maxalt] 10 mg tablet 10 mg PO .COMPLEX Qty: 30 2RF Rx Instructions: 1 tab x 1 dose, prn may repeat at 2 hour interval, do not exceed 30mg in 24 hours furosemide 20 mg tablet 20 mg PO DAILY PRN (Reason: Severe edema) Qty: 30 1RF Rx Instructions: Trial for excessive edema, corey post call; monitor closely, incl electrolytes albuterol sulfate 90 mcg/actuation aerosol powdr breath activated 1 - 2 inh IH Q4H PRN (Reason: shortness of breath or wheezing) Qty: 1 3RF Rx Instructions: Dispense brand of alb inhaler as best covered by patient's insurance. fluticasone furoate-vilanterol [Breo Ellipta] 200-25 mcg/dose blister with device 1 inh inhalation DAILY Qty: 60 6RF cholecalciferol (vitamin D3) 3,000 unit tablet 4,000 unit PO DAILY Qty: 90 5RF omega-3 fatty acids 1,000 mg capsule 1,000 mg PO DAILY Qty: 90 3RF MigreLief 200-180-50 mg tablet 1 tab PO BID albuterol sulfate 2.5 mg/0.5 mL solution for nebulization 2.5 mg IH Q4H PRN (Reason: shortness of breath or wheezing) Qty: 120 3RF Pennsaid 2 % solution in packet 1 packet topical BID PRN Estring 2 mg (7.5 mcg /24 hour) ring 1 vag ring [id number] Qty: 1 3RF Rx Instructions: Continue metformin 750 mg tablet extended release 24 hr 750 mg PO DAILY Qty: 90 3RF irbesartan 150 mg tablet 150 mg PO DAILY Qty: 90 3RF Rx Instructions: In place of valsartan hydrochlorothiazide 12.5 mg tablet 12.5 mg PO DAILY Qty: 90 3RF Enbrel SureClick 50 mg/mL (1 mL) pen injector 50 mg SUBCUT .Q1W acetaminophen [Tylenol] 325 mg Capsule 650 mg PO ONCE PRN Discharge Instructions Instructions: Wound Care ED, Laceration Repair With Glue ED Additional Instructions: Please keep it as clean as dry as possible. Be careful when taking off the dressing. Return for any signs of infection including increased redness, red streaks drainage or fever. The glue will slough off on its own within the next 3 days. You are given tetanus vaccination here today. Follow up with primary care provider in 3-5 days. Return to ED sooner if any worsening or concerns. Please take Tylenol or Ibuprofen with food every 4-6 hours as needed for pain and swelling. Referrals: Seda Estrada DO [Primary Care Provider] - 1 week Discharge Data Discharge Date/Time-TO BE ENTERED AT DEPARTURE: 01/20/24 11:05 HPI General Mode of arrival: ambulatory . Date/Time Provider Initiated Documentation: 01/20/24 09:34 . Limitations to Documentation: no limitations . Information obtained by: patient, RN notes reviewed and old records reviewed . HPI Narrative: 58-year-old female presents to the ER with a chief complaint of left ring finger avulsion. Patient was gardening yesterday and cutting buckley and accidentally cut the distal tip of her left ring finger off. She did dress it at the time and washed it with tap water. Bleeding is controlled upon arrival. She does have some decreased range of motion due to arthritis. No signs of infection, last tetanus vaccination was in 2003 she does have a history of flulike symptoms listed on her allergy list from tetanus. However, we will go ahead and administer due to benefits versus risks and observe for adverse reaction. Related Data Home Medications ?Medication ?Instructions ?Recorded ?Confirmed cholecalciferol (vitamin D3) 75 4,000 unit PO DAILY #90 tabs 11/04/18 01/20/24 mcg (3,000 unit) tablet omega-3 fatty acids 1,000 mg 1,000 mg PO DAILY #90 caps 11/04/18 01/20/24 capsule orphenadrine citrate 100 mg 100 mg PO BID PRN 01/03/19 01/20/24 tablet,extended release acetaminophen 325 mg capsule 650 mg PO ONCE PRN 03/17/19 01/20/24 (Tylenol) riboflavin 200 mg-magnesium 1 tab PO BID 06/02/19 01/20/24 citrate,oxide 180 mg-feverfew 50 mg tablet (MigreLief) nebulizers (Compact Compressor #1 ea 08/30/19 09/25/23 Nebulizer) ivwikcrcrs-xeqyvsxtlkijq-qcqxwazy 1 cap PO TID PRN pain #30 caps 09/21/19 09/25/23 50 mg-300 mg-40 mg capsule albuterol sulfate 2.5 mg/0.5 mL 2.5 mg (0.5 mL) inhalation Q4H PRN 06/20/21 01/20/24 solution for nebulization shortness of breath or wheezing #120 ea diclofenac sodium 2 % topical 1 packet topical BID PRN 01/22/22 01/20/24 solution in packet (Pennsaid) Migrovent on HOLD #1 ea 07/24/22 09/25/23 milk thistle 150 mg capsule 150 mg PO BID #1 cap 07/24/22 01/20/24 etanercept 50 mg/mL (1 mL) 50 mg subcut QWEEK 01/27/23 09/25/23 subcutaneous syringe (Enbrel) furosemide 20 mg tablet 20 mg PO DAILY PRN Severe edema 01/27/23 01/20/24 #30 tabs rizatriptan 10 mg tablet (Maxalt) 10 mg PO .COMPLEX #30 tabs 01/27/23 01/20/24 albuterol sulfate 90 mcg/actuation 1 - 2 inh inhalation Q4H PRN 03/16/23 01/20/24 breath activated powder inhaler shortness of breath or wheezing #1 ea fluticasone furoate 200 1 inh inhalation DAILY #60 ea 03/16/23 01/20/24 mcg-vilanterol 25 mcg/dose inhalation powder (Breo Ellipta) estradiol 2 mg (7.5 mcg/24 hour) 1 vag ring vaginal [id number] #1 ea 07/21/23 01/20/24 vaginal ring (Estring) metformin 750 mg tablet,extended 750 mg PO DAILY #90 tabs 08/30/23 01/20/24 release 24 hr irbesartan 150 mg tablet 150 mg PO DAILY #90 tabs 09/11/23 01/20/24 hydrochlorothiazide 12.5 mg tablet 12.5 mg PO DAILY #90 tabs 01/05/24 01/20/24 etanercept 50 mg/mL (1 mL) 50 mg subcut .Q1W 01/20/24 01/20/24 subcutaneous pen injector (Enbrel SureClick) Previous Rx's ?Medication ?Instructions ?Recorded cholecalciferol (vitamin D3) 75 4,000 unit PO DAILY #90 tabs 11/04/18 mcg (3,000 unit) tablet omega-3 fatty acids 1,000 mg 1,000 mg PO DAILY #90 caps 11/04/18 capsule nebulizers (Compact Compressor #1 ea 08/30/19 Nebulizer) mbdykuwxzf-bxgztkvyhuuxw-ulfwegjw 1 cap PO TID PRN pain #30 caps 09/21/19 50 mg-300 mg-40 mg capsule albuterol sulfate 2.5 mg/0.5 mL 2.5 mg (0.5 mL) inhalation Q4H PRN 06/20/21 solution for nebulization shortness of breath or wheezing #120 ea Migrovent on HOLD #1 ea 07/24/22 milk thistle 150 mg capsule 150 mg PO BID #1 cap 07/24/22 furosemide 20 mg tablet 20 mg PO DAILY PRN Severe edema 01/27/23 #30 tabs rizatriptan 10 mg tablet (Maxalt) 10 mg PO .COMPLEX #30 tabs 01/27/23 albuterol sulfate 90 mcg/actuation 1 - 2 inh inhalation Q4H PRN 03/16/23 breath activated powder inhaler shortness of breath or wheezing #1 ea fluticasone furoate 200 1 inh inhalation DAILY #60 ea 03/16/23 mcg-vilanterol 25 mcg/dose inhalation powder (Breo Ellipta) estradiol 2 mg (7.5 mcg/24 hour) 1 vag ring vaginal [id number] #1 ea 07/21/23 vaginal ring (Estring) metformin 750 mg tablet,extended 750 mg PO DAILY #90 tabs 08/30/23 release 24 hr irbesartan 150 mg tablet 150 mg PO DAILY #90 tabs 09/11/23 hydrochlorothiazide 12.5 mg tablet 12.5 mg PO DAILY #90 tabs 01/05/24 Allergies Allergy/AdvReac Type Severity Reaction Status Date / Time naproxen (From Naprelan) Allergy Intermediate Hives. Verified 01/20/24 09:31 Long acting naproxen. Tolerates Naproxen fine Tetanus Vaccines and Toxoid AdvReac Intermediate Flu like Verified 01/20/24 09:31 symptoms lisinopril AdvReac Mild Other (See Uncoded 01/20/24 09:31 Comment) General Stated Complaint: Laceration LUCERO: 4 Exam Extrem Left upper extremity: hand Details: normal capillary refill, neuromotor exam normal, neurosensory exam normal, tendon exam normal and laceration (Distal tip left ring finger, bleeding controlled) Hand/finger images: 2 1. avulsed lacerated distal tip, Course Vital Signs Vital signs: Vital Signs Temperature 36.6 C 01/20/24 09:28 Pulse 78 01/20/24 09:28 Respiratory Rate 15 01/20/24 09:28 Blood Pressure 138/82 01/20/24 09:28 Pulse Oximetry 98 01/20/24 09:28 Temperature 36.6 C 01/20/24 09:28 Temperature Source Temporal Artery Scan 01/20/24 09:28 Pulse 78 01/20/24 09:28 Respiratory Rate 15 01/20/24 09:28 Respiratory Effort Normal 01/20/24 09:30 Blood Pressure 138/82 01/20/24 09:28 Blood Pressure Position Sitting 01/20/24 09:28 Pulse Oximetry 98 01/20/24 09:28 Oxygen Delivery Method Room Air 01/20/24 09:28 Oxygen Flow Rate 0 01/20/24 09:28 Pain Level 5 01/20/24 09:39 Medical Decision Making 58-year-old female presents to the ER with a chief complaint of left ring finger avulsion. Patient was gardening yesterday and cutting buckley and accidentally cut the distal tip of her left ring finger off. She did dress it at the time and washed it with tap water. Bleeding is controlled upon arrival. She does have some decreased range of motion due to arthritis. No signs of infection, last tetanus vaccination was in 2003 she does have a history of flulike symptoms listed on her allergy list from tetanus. However, we will go ahead and administer due to benefits versus risks and observe for adverse reaction. No clinical reason for imaging at this time. Will clean wound, apply Dermabond and Xeroform dressing. Will give instructions on increased infection, and when to return for further eval if needed. Care performed by ED staff dressing applied. Instructed on home care verbalized understanding. This text was generated using [employer] system, please disregard any oddities of phrase or misspellings. Quality:SDOH Health Related Social Needs: 2 No Data to Display PFSH All Active Problems (Updated 01/20/24 @ 10:56 by Kerri Canales NP) Laceration of left index finger w/o foreign body w/o damage to nail (Acute) DORON on CPAP (Chronic) Cholelithiases (Acute) per 07/2023 Abd US (no stones) Hepatomegaly (Acute) per 07/2023 Abd US Pain in right foot (Acute) Pain in right ankle (Acute) Pain in left ankle (Acute) Need for immunization against influenza (Acute) Pain in joint, foot, left (Acute) Ingrowing left great toenail (Acute) At risk for osteoporosis (Acute) Mandibular dysfunction (Acute) Mild degeneration of the left mandibular condyle (MRI, Jun 2022) TMJ articul disc disordr (Acute) Displaced abnormal meniscus, right TMJ (MRI June 2022) Jaw anomaly (Acute) Abn MRI, 07/15/22 ([facility] [place])(per jaw doc in [place], Dr Yo Wlilis). [ ] [facility] [place] [facility] Referral to Dr. Artur Huang -- 10/2022 Primary osteoarthritis (Acute) Hypertension (Chronic) Prediabetes (Acute) per [facility] GI note, 01/03/22 (A1C 6.2). Metformin started. Nonalcoholic steatohepatitis (PRYOR) (Acute) per 07/2023 Abd US .. 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 happening more frequently .. inhaling of food (even when quietly sitting/no talking) with vocal chord affect (cannot talk; appears to be choking). No dysphagia, no choking. Lung nodule (Acute) 04/20/20 Pulnato Alejandro 2 mm right lobe- does not need to be followed. 5 mm left lower lobe-follow with noncontrast chest CT feb 2021 Sleep apnea (Acute) 04/20/20-Pulmonary Dr Harper. refers oral appliance. 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 improved w/ Methotrex, 2020. Mild obstructive sleep apnea (Acute 02/01/20) CPAP Edema (Acute) Episodes of severe edema: trial LASIX PRN. LE Edema, relieved with HCTZ Erosive (osteo)arthritis (Acute) of R Hand. 11/08/19 [facility] [place] [facility] Ortho Abnormal uterine bleeding (AUB) (Acute) Estring started by [facility] 11/04/2009 Asthma (Chronic) Migraine headache with aura (Acute) Vitamin D deficiency (Acute) Osteoarthritis (Chronic) Medical History COVID sx onset 09/23/22, positive test result 09/24/22 Conjunctival cyst of right eye and blocked tear duct COVID-19 Resolved .. 07/11/21 (+) = day 1 of symptoms. Aspiration of food Incomplete, but enough to affect vocal chords .. cannot speak to state she is not choking.. (episodic, but notably increased) IGTN (ingrowing toe nail) Hx nail removal .. may need it for left great toe. 03/18/21 [facility]: avulsion nail w/matrix(left medial hallux nail border), Acute diverticulitis CT confirmed--Cipro + Flagyl Abdominal pain Lower central abdominal Pain into LLQ; possible diverticulitis? (02/2020) [ ] CT Diverticulosis per colo, 2019 History of postoperative nausea Internal derangement of left knee Injected: 11/15/2018 Family history of breast cancer Mammo NEG 08/2018. Mother recetnly Dx with breast cancer .. waiting genetic cancer, possible gen couns [ ] Family hx of colon cancer requiring screening colonoscopy delivery delivered 1985 Seizures Nearly on year post med d/c, no sz. [ ] Neuro for estab and headache review Surgical History History of liver biopsy 12/20/21 H/O nasal septoplasty History of recent maxillofacial surgery Bilateral sagittal split osteotomy with mandibular advancement with [place] I setback (24 years old) History of colonoscopy 03/17/19 History of ankle surgery Right Hx of arthroscopy of knee History of mandibular surgery Hx of exploratory laparotomy History of dilation and curettage Hysteroscopy, D&C AUB Status post creation of urethral sling by suprapubic approach bladder sling also Congenital fusion of spine C4-C5 Family History Mother Colon cancer High cholesterol Hypertension Breast cancer Pulmonary embolism COVID-19 Father COVID-19 Other Family history of breast cancer Family history of malignant melanoma Family hx of colon cancer requiring screening colonoscopy Social History Smoking/Tobacco Use Status: Never Smoking risk assessment performed?: Yes Alcohol Intake: current Alcohol Intake frequency: a few times a week Alcohol type: wine Drug use: Never Details: alcohol: t-7 Adopted: No Household members: spouse and children Number of Children: 3 Education Level: master's degree 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 [employer] What is your relationship status?: Panel score (0-1 are the most socially isolated patients): 1 What type of physical activity do you participate in: none Seatbelt use: always Do you feel safe at home: Yes Do you feel safe in your relationship?: Yes PAWSS Have you Been Recently Intoxicated or Drunk Within the Last 30 days?: No Have you Ever Experienced Previous Episodes of Alcohol Withdrawal?: No Have you ever Experienced Withdrawal Seizures?: No Have you ever Experienced Delirium Tremens(DT)s?: No Have you ever undergone Alcohol Rehabilitation Treatment (i.e, inpt ot outpatient treatment programs)?: No Have you ever Experienced Blackouts?: No Have you ever Combined Alcohol with other Downers within the last 90 days?: No Have you ever Combined Alcohol with any other Substance of Abuse during the last 90 days?: No Result: 0
== END 2024-01-20 11:05 | disposition home or self-care (01) ==
PROVIDERS: Emergency Provider Registered Nurse Emergency; PCP Student in an Organized Health Care Education/Training Program
DX: S61.211A Laceration without foreign body of left index finger without damage to nail, initial encounter (principal); Z23 Encounter for immunization; W26.8XXA Contact with other sharp object(s), not elsewhere classified, initial encounter; Y93.H2 Activity, gardening and landscaping
CPT/HCPCS: 90471; 90715; 99283

== ENCOUNTER 2024-02-26 09:35 | Outpatient (CLI) | payer OTHER, SELFPAY ==
[2024-02-26 08:37] LABS: Abs Immature Grans 0.02 10^3/uL (0.0-0.06); Absolute Basophil Count 0.06 10^3/uL (0.0-0.2); Absolute Eosinophil Count 0.43 10^3/uL (0.0-0.7); Absolute Lymphocyte Count 1.81 10^3/uL (1.2-3.4); Absolute Monocyte Count 0.49 10^3/uL (0.1-0.8); Absolute Neutrophil Count 2.61 10^3/uL (1.2-6.7); Basophils % 1.1 %; Eosinophils % 7.9 %; HCT 42.1 % (36.0-46.0); HGB 13.8 g/dL (11.2-15.7); Immature Grans % 0.4 %; Lymphocytes % 33.4 %; MCH 29.8 pg (27.0-33.0); MCHC 32.8 % (32.0-36.0); MCV 91 fL (80-95); MPV 10.1 fL (8.0-11.0); Neutrophils % 48.2 %; Platelet Count 195 10^3/uL (130-400); RBC 4.63 10^6/uL (3.93-5.22); RDW 13.8 % (11.7-14.6); RDW-SD 46.1 fL; WBC 5.42 10^3/uL (4.4-10.8)
[2024-02-26 08:44] LABS: Prothrombin Time 9.8 sec (9.1-11.1)
[2024-02-26 08:47] LABS: ALT 49 U/L (14-59); AST 33 U/L (15-37); Albumin 3.6 g/dL (3.4-5.0); Alkaline Phosphatase 84 U/L (46-116); Anion Gap 9.8 mmol/L (3-11); BUN 19 mg/dL (7-18); Bilirubin, Total 0.46 mg/dL (0.2-1.0); CO2 26.2 mmol/L (21.0-32.0); CREATININE 0.9 mg/dL (0.55-1.02); Calcium 9.2 mg/dL (8.5-10.1); Chloride 103 mmol/L (98-107); Estimated GFR 73.64 (mL/min/1.73m2); Glucose 119 mg/dL (74-106); Potassium 3.7 mmol/L (3.5-5.1); Sodium 139 mmol/L (136-145); Total Protein 7.2 g/dL (6.4-8.2)
== END 2024-02-26 09:36 | disposition home or self-care (01) ==
LOC: LBO 09:35
PROVIDERS: PCP Student in an Organized Health Care Education/Training Program; Visit Provider Nurse Practitioner Adult Health
DX: K74.60 Unspecified cirrhosis of liver (principal)
CPT/HCPCS: 36415; 80053; 82105; 85025; 85610

== ENCOUNTER 2024-04-06 00:51 | Outpatient (CLI) | payer OTHER, SELFPAY ==
--- NOTE | 2024-04-06 | DI.RAD_ITS ---
Exam(s) XR SACRUM COCCYX XR SACROILIAC JOINTS XR HIP PELVIS ADULT BL EXAM: XR HIP PELVIS ADULT BL CLINICAL HISTORY: BILAT HIP PAIN,SI JOINT PAIN,COCCYX PAIN,M53.3,M25.552,M25.551. TECHNIQUE: 2D digital imaging was performed. Three views. COMPARISON: CR XR SACROILIAC JOINTS from 04/06/2024 CR XR SACRUM COCCYX from 04/06/2024 FINDINGS: BONES: No acute fracture is present. No bony destructive lesion is seen. Facet degenerative changes present in the lower lumbar spine. JOINTS: No dislocation present. The hip joint spaces are maintained bilaterally. Mild acetabular s purring. There is spurring at the inferior aspects of both SI joints, right greater than left. No b lauren erosions or bony bridging. Mild spur spurring at the pubic symphysis. SOFT TISSUE: IUD noted. IMPRESSION: Mild degenerative changes of the inferior sacroiliac joints, right greater than left. Mild degenerat abel changes of the hips and pubic symphysis. DATA REPOSITORY: RADIATION DOSE DELIVERED:
== END 2024-04-06 01:11 ==
LOC: DI 00:51
PROVIDERS: PCP Student in an Organized Health Care Education/Training Program; Visit Provider Nurse Practitioner
DX: M53.3 Sacrococcygeal disorders, not elsewhere classified (principal); M16.0 Bilateral primary osteoarthritis of hip
CPT/HCPCS: 73521; 72202; 72220

== ENCOUNTER 2024-05-20 01:44 | Outpatient (CLI) | payer OTHER, SELFPAY ==
--- NOTE | 2024-05-20 08:32 | DI.MAMMO_ITS ---
Exam(s) MAMMO SCREENING EXAM: MAMMO SCREENING CLINICAL HISTORY: screening,z12.39. TECHNIQUE: Bilateral full field digital CC and MLO mammographic images were obtained with 3D tomosyn thesis and utilizing computer aided detection (CAD). COMPARISON: Prior mammograms were reviewed. FINDINGS: Right breast previously described nodular density has significantly decreased in size, further eviden ce that it was a cyst. Some asymmetric tissue anteriorly is unchanged from prior mammograms. In the left breast few small benign-appearing nodules again noted, the largest laterally and these ar e stable. There are no new spiculated masses nor malignant appearing microcalcification groups. There is no significant architectural distortion nor skin thickening-retraction. IMPRESSION: Stable benign-appearing findings. No radiographic evidence of malignancy. BI-RADS Category 2 - Benign Findings Breast Density - Category B - Scattered areas of fibroglandular density Breast density Category C or D implies that the patient has dense breast tissue. Dense breast tissue can make it harder to find cancer on a mammogram. Dense breast tissue is also associated with an incr eased risk of breast cancer. This information about the result of the mammogram report was provided to the patient to raise their awareness. Use this report when you speak with the patient about their risks for breast cancer, which includes their family history. At that time, you may recommend additional screening tests (Ultrasoun d or MRI) as these tests may add significant information. A negative radiographic report should not delay biopsy if a dominant or clinically suspicious mass is present. Up to ten percent of cancers are not identified on mammography. A negative report may reinforce clinical impression. Adenosis and dense breasts may obscure an underlying neoplasm. False positive reports average 6 to 10%. Patient will receive a letter notifying them of these results.
== END 2024-05-20 02:04 ==
PROVIDERS: PCP Student in an Organized Health Care Education/Training Program; Visit Provider Student in an Organized Health Care Education/Training Program
DX: Z12.31 Encounter for screening mammogram for malignant neoplasm of breast (principal); R92.323 Mammographic fibroglandular density, bilateral breasts; D24.9 Benign neoplasm of unspecified breast
CPT/HCPCS: 77063; 77067

== ENCOUNTER 2024-06-03 06:21 | Day surgery (SDC) | payer OTHER, SELFPAY ==
--- NOTE | 2024-06-02 20:05 | W.PM.DSUDISC ---
Date of service: 06/03/24 Discharge Plan Disposition Patient Disposition: Home Condition: Good Discharge Details Attending Provider: Jose Enrique Dee Primary Care Provider: Seda Estrada Home Meds and New Rx's Prescriptions: Continued orphenadrine citrate 100 mg tablet extended release 100 mg PO BID PRN Patient Comments: uses PRN for muscle spasms pdfwegrznu-fdiounfrkmhbp-fooi 50-300-40 mg capsule 1 cap PO TID PRN (Reason: pain) Qty: 30 2RF (DME) Compact Compressor Nebulizer Misc See Rx Instructions .ROUTE .MEDSUPPLY Qty: 1 0RF Rx Instructions: As directed milk thistle 150 mg capsule 150 mg PO BID Qty: 1 0RF Rx Instructions: give with meal/snack (DME) Migrovent on HOLD See Rx Instructions .Route .MEDSUPPLY Qty: 1 0RF Rx Instructions: on hold per KG 2' liver (preventive for migraine) Enbrel 50 mg/mL (1 mL) syringe 50 mg subcut QWEEK Patient Comments: 01/18/23 [facility] [place]HEUM NOTE.HE 01/14/23 rheum note. trial switch from humira. rizatriptan [Maxalt] 10 mg tablet 10 mg PO .COMPLEX Qty: 30 2RF Rx Instructions: 1 tab x 1 dose, prn may repeat at 2 hour interval, do not exceed 30mg in 24 hours furosemide 20 mg tablet 20 mg PO DAILY PRN (Reason: Severe edema) Qty: 30 1RF Rx Instructions: Trial for excessive edema, corey post call; monitor closely, incl electrolytes albuterol sulfate 90 mcg/actuation aerosol powdr breath activated 1 - 2 inh IH Q4H PRN (Reason: shortness of breath or wheezing) Qty: 1 3RF Rx Instructions: Dispense brand of alb inhaler as best covered by patient's insurance. cholecalciferol (vitamin D3) 3,000 unit tablet 4,000 unit PO DAILY Qty: 90 5RF omega-3 fatty acids 1,000 mg capsule 1,000 mg PO DAILY Qty: 90 3RF MigreLief 200-180-50 mg tablet 1 tab PO BID albuterol sulfate 2.5 mg/0.5 mL solution for nebulization 2.5 mg IH Q4H PRN (Reason: shortness of breath or wheezing) Qty: 120 3RF Pennsaid 2 % solution in packet 1 packet topical BID PRN Estring 2 mg (7.5 mcg /24 hour) ring 1 vag ring VG [id number] Qty: 1 3RF Rx Instructions: Continue metformin 750 mg tablet extended release 24 hr 750 mg PO DAILY Qty: 90 3RF irbesartan 150 mg tablet 150 mg PO DAILY Qty: 90 3RF Rx Instructions: In place of valsartan hydrochlorothiazide 12.5 mg tablet 12.5 mg PO DAILY Qty: 90 3RF fluticasone furoate-vilanterol [Breo Ellipta] 200-25 mcg/dose blister with device 1 inh inhalation DAILY Qty: 60 6RF prednisone 5 mg tablet See Rx Instructions PO DAILY PRN (Reason: Joint pain) Rx Instructions: 2.5-5 mg orally daily PRN; Up to 7 days Enbrel SureClick 50 mg/mL (1 mL) pen injector 50 mg SUBCUT .Q1W acetaminophen [Tylenol] 325 mg Capsule 650 mg PO ONCE PRN Discharge Instructions Instructions: Colon polyps, Diverticulosis Additional Instructions: Marissa, was great seeing you today, and I hope you are comfortable throughout the procedure. Everything went very smoothly. Your prep was outstanding. I did find and remove 3 polyps today. All of these are relatively small, and none of them have any worry some features that are obvious to the naked eye. Regardless, these will all be sent off for testing, since colon polyps 2, different varieties, and we can use that information to help guide the timing of your next colonoscopy. Incidentally, he also have some diverticulosis. I have touched a little bit of information here about typical approaches to diverticular disease as well as colon polyps. If you have any questions or need anything at all, please feel free to grab me a WebEx me to call me or what ever is most convenient at any time. Polypectomy results usually take about a week or so to get back, but since we have that information, the office will be in touch. 1. If tolerated, consume a soft, low fiber diet for 1-2 days. [address] not drive, drink alcohol, operate machinery, make critical decisions, or do activities that require coordination or balance for 24 hours. 3. Because air was put into your colon during the procedure, expelling air from your rectum (passing gas or farting) is normal. 4. You may not have a bowel movement for 1-3 days because of the colonoscopy prep. This is normal. 5. Go directly to the emergency room if you notice any of the following: Develop chills (warm to touch), or if you have a thermometer and your temperature is above 101 Difficulty breathing or difficultly swallowing Persistent vomiting Severe abdominal pain, other than gas cramps Severe chest pain Black, tarry stools Any bleeding ? exceeding one tablespoon 6. Call your physician if the site where your intravenous was started becomes red, swollen, painful, and warm to touch. 7. Your physician has reviewed your pre-procedure medications. Please continue to take those medications as previously ordered. You will be given specific information/education regarding any changes to your medications before leaving. Activity:: Activity as Tolerated Diet:: As Tolerated Discharge Orders Discharge Orders: Discharge Order (Routine); Ordered 06/02/24 Ordered By: Jose Enrique Dee DS: Diagnosis Discharge Diagnosis (1) Encounter for screening colonoscopy: Status: Acute Asessment and Plan: Follow-up polypectomy results
--- NOTE | 2024-06-02 20:07 | COLE_ITS ---
Date of service: 06/03/24 Time of Service: 08:29 Colonoscopy Report Date of procedure: 06/03/24 Pre-op diagnosis general: screening colonsocopy Post-op diagnosis procedure note: other (Colon polyps, diverticulosis) Procedure: colonoscopy with polypectomy Surgeon: Jose Enrique Dee Anesthesia Type: General:No Airway Estimated blood loss (mL): 5 Pathology: other (0.25 cm ascending colon polyp, 0.25 cm polyp at 100 cm, 0.25 cm polyp at 80 cm) Complications: None Disposition: same day Indications: Marissa is a 58 year old womanw with a family hisotry of colon cancer who needs a screening colonsocopy Prep: Miralax/Dulcolax Procedure Start Time: 08:08 Procedure End Time: 08:21 Retraction Time: 9 Findings: Pandiverticulosis; 0.25 cm ascending colon polyp, 0.25 cm polyp at 100 cm, 0.25 cm polyp at 80 cm Procedure Description: After the induction of anesthesia, and with the patient in left lateral decubitus position, I began by performing an external anorectal exam.? Perineum and skin were normal, as was the anal verge.? There was no evidence of external hemorrhoids.? Next, I performed a digital rectal exam.? I did not appreciate any abnormal findings.? Next, I advanced a colonoscope into the rectal vault.? I performed retroflexion.? This appeared normal.? Using insufflation, I then advanced the colonoscope beyond the rectal folds and into the sigmoid colon before advancing towards the cecum.? There are diverticula throughout the length of the colon.? The scope was noted to be in the cecum by identification of the ileocecal valve and appendiceal orifice.? I then began withdrawing the colonoscope using repeated irrigation as necessary for full evaluation of the colonic mucosa. I found a 0.25 cm flat polyp within the ascending colon. This was removed with cold forceps. Similarly, I found flat polyps at 100 cm and 80 cm. Each of these was less than 0.25 cm, and each was flat. Both of these polyps were removed with cold forceps without any significant bleeding. Once the scope was withdrawn to the level of the rectum, great care was taken to examine portions of the rectal folds.? Finally, the scope was withdrawn and the patient was brought to the same-day surgery recovery unit as the anesthetic wore off. ?The findings and instructions were shared with the patient prior to discharge. [place] Bowel Prep [place] Bowel Prep Right Colon: 3 Left Colon: 3 Transverse Colon: 3 Total Score: 9
[2024-06-03 06:35] VITALS: BP 145/80; PULSE 79; RESP 20; TEMP 36.2; O2SAT 96
--- NOTE | 2024-06-03 07:10 | ANES.PREOP_ITS ---
General Info Date of Service Date Performed: 06/03/24 Height: 5 ft 6 in Weight: 116.573 kg Body Mass Index (BMI): 41.4 Surgical Procedure: Operation Date: 06/03/24 07:35 Proposed Procedure Side Surgeon p Colonoscopy Jose Enrique Dee MD Actual Procedure Side Surgeon p Colonoscopy Not Applicable Jose Enrique Dee MD Meds Allergies and Home Medications Allergies Allergy/AdvReac Type Severity Reaction Status Date / Time naproxen (From Naprelan) Allergy Intermediate Hives. Verified 06/03/24 06:31 Long acting naproxen. Tolerates Naproxen fine Tetanus Vaccines and Toxoid AdvReac Intermediate Other (See Verified 06/03/24 06:31 Comment) lisinopril AdvReac Mild Other (See Uncoded 06/03/24 06:31 Comment) Home Medication ?Medication ?Instructions ?Recorded cholecalciferol (vitamin D3) 75 4,000 unit PO DAILY #90 tabs 11/04/18 mcg (3,000 unit) tablet omega-3 fatty acids 1,000 mg 1,000 mg PO DAILY #90 caps 11/04/18 capsule orphenadrine citrate 100 mg 100 mg PO BID PRN 01/03/19 tablet,extended release acetaminophen 325 mg capsule 650 mg PO ONCE PRN 03/17/19 (Tylenol) riboflavin 200 mg-magnesium 1 tab PO BID 06/02/19 citrate,oxide 180 mg-feverfew 50 mg tablet (MigreLief) nebulizers (Compact Compressor #1 ea 08/30/19 Nebulizer) ghasqkhgst-xgiuompxmvhux-zktnceos 1 cap PO TID PRN pain #30 caps 09/21/19 50 mg-300 mg-40 mg capsule albuterol sulfate 2.5 mg/0.5 mL 2.5 mg (0.5 mL) inhalation Q4H PRN 06/20/21 solution for nebulization shortness of breath or wheezing #120 ea diclofenac sodium 2 % topical 1 packet topical BID PRN 01/22/22 solution in packet (Pennsaid) Migrovent on HOLD #1 ea 07/24/22 milk thistle 150 mg capsule 150 mg PO BID #1 cap 07/24/22 etanercept 50 mg/mL (1 mL) 50 mg subcut QWEEK 01/27/23 subcutaneous syringe (Enbrel) furosemide 20 mg tablet 20 mg PO DAILY PRN Severe edema 01/27/23 #30 tabs rizatriptan 10 mg tablet (Maxalt) 10 mg PO .COMPLEX #30 tabs 01/27/23 albuterol sulfate 90 mcg/actuation 1 - 2 inh inhalation Q4H PRN 03/16/23 breath activated powder inhaler shortness of breath or wheezing #1 ea estradiol 2 mg (7.5 mcg/24 hour) 1 vag ring vaginal [id number] #1 ea 07/21/23 vaginal ring (Estring) metformin 750 mg tablet,extended 750 mg PO DAILY #90 tabs 08/30/23 release 24 hr irbesartan 150 mg tablet 150 mg PO DAILY #90 tabs 09/11/23 hydrochlorothiazide 12.5 mg tablet 12.5 mg PO DAILY #90 tabs 01/05/24 etanercept 50 mg/mL (1 mL) 50 mg subcut .Q1W 01/20/24 subcutaneous pen injector (Enbrel SureClick) fluticasone furoate 200 1 inh inhalation DAILY #60 ea 03/29/24 mcg-vilanterol 25 mcg/dose inhalation powder (Breo Ellipta) prednisone 5 mg tablet See Rx Instructions PO DAILY PRN 05/17/24 Joint pain Current Visit Medications: Current Medications Generic Name Dose Route Start Last Admin Trade Name Freq PRN Reason Stop Dose Admin Ringer's Solution 1,000 mls @ 80 mls/hr 06/03/24 06:00 IV 06/03/24 23:59 INFUSION [facility] IV Miscellaneous Supplies 1 each 06/03/24 06:00 Iv Access IV 06/03/24 23:59 DIRECTED [facility] Ondansetron HCl 4 mg 06/02/24 20:08 Ondansetron 4 Mg/2 Ml Vial IVP 07/02/24 20:07 Q4H PRN PRN Nausea / Vomiting Sodium Chloride 0 ml 06/03/24 06:00 Normal Saline Flush 10 Ml Syr IV 06/03/24 23:59 PRN PRN Sodium Chloride 0 ml 06/03/24 06:00 Normal Saline 10 Ml Vial IJ 06/03/24 23:59 DIRECTED PRN Sterile Water 0 ml 06/03/24 06:00 Water,Injection,Sterile 10 Ml Vial IJ 06/03/24 23:59 DIRECTED PRN PFSH Active Problems Active Problems: Problem Status Onset Code Encounter for screening colonoscopy Acute Z12.11 Generalized hypermobility of joints Acute M24.80 Laceration of left index finger w/o foreign body w/o damage to nail Acute S61.211A DORON on CPAP Chronic G47.33 Cholelithiases Acute K80.20 Hepatomegaly Acute R16.0 Pain in right foot Acute M79.671 Pain in right ankle Acute M25.571 Pain in left ankle Acute M25.572 Need for immunization against influenza Acute Z23 Pain in joint, foot, left Acute M25.572 Ingrowing left great toenail Acute L60.0 At risk for osteoporosis Acute Z91.89 Mandibular dysfunction Acute M26.69 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 07/11/21 (+) = day 1 of symptoms. Aspiration of food Incomplete, but enough to affect vocal chords .. cannot speak to state she is not choking.. (episodic, but notably increased) IGTN (ingrowing toe nail) Hx nail removal .. may need it for left great toe. 03/18/21 [facility]: avulsion nail w/matrix(left medial hallux nail border), Acute diverticulitis CT confirmed--Cipro + Flagyl Abdominal pain Lower central abdominal Pain into LLQ; possible diverticulitis? (02/2020) [ ] CT Diverticulosis per colo, 2019 History of postoperative nausea Internal derangement of left knee Injected: 11/15/2018 Family history of breast cancer Mammo NEG 08/2018. Mother recetnly Dx with breast cancer .. waiting genetic cancer, possible gen couns [ ] Family hx of colon cancer requiring screening colonoscopy delivery delivered 1986 Seizures Nearly on year post med d/c, no sz. [ ] Neuro for estab and headache review They are awake seizures, I havent had one in 8 years Surgical History Surgical History Hx of section History of liver biopsy 12/20/21 [facility] H/O nasal septoplasty History of recent maxillofacial surgery Bilateral sagittal split osteotomy with mandibular advancement with [place] I setback (24 years old) History of colonoscopy 03/17/19 History of ankle surgery Right Hx of arthroscopy of knee History of mandibular surgery Hx of exploratory laparotomy History of dilation and curettage Hysteroscopy, D&C AUB Status post creation of urethral sling by suprapubic approach bladder sling also Congenital fusion of spine C4-C5 Tobacco Smoking/Tobacco Use Status: Never Alcohol Alcohol Intake: current Alcohol intake frequency: a few times a week Alcohol type: wine Substance Use Substance use: Never Vital Signs and Lab Results Vital Signs Most Recent Vital Signs in EMR: Most Recent Vital Signs Temp Pulse Resp BP Pulse Ox 36.2 C L 79 20 145/80 H 96 06/03/24 06:35 06/03/24 06:35 06/03/24 06:35 06/03/24 06:35 06/03/24 06:35 Lab Results Blood Type / Crossmatch: No Data to Display Complete Blood Count: No Data to Display Complete Metabolic Panel: No Data to Display Liver Function Panel: No Data to Display Coagulation Panel: No Data to Display Cardiac Panel: No Data to Display Arterial Blood Gas: No Data to Display Venous Blood Gas: No Data to Display Pancreas Panel: No Data to Display Thyroid Panel: No Data to Display Infectious Disease: No Data to Display Blood Cultures: No Data to Display Toxicology Panel: No Data to Display Anesthesia Assessment and Plan Anesthesia History Personal History: PONV Family History: No Family History of Anesthesia Complications Exercise Tolerance Exercise Tolerance: Metabolic Equivalents>4 Pertinent Negatives Pertinent Negatives: No Symptoms of GERD Cardiac & Pulmonary Exam Cardiac Exam: Normal S1/S2 Heart Sounds Pulmonary Exam: Clear Bilateral Breath Sounds Implantable Cardiac Device Does patient have a Pacemaker or an ICD?: No Airway Exam Known Difficult Airway: No Mallampati Class: 2 Mouth Opening: Normal (> 3cm) Thyromental Distance: Less than 3 cm Neck Range of Motion: Full ROM Neck Circumference: Normal Teeth Condition: Normal Dentition ASA Classification ASA Score: ASA 3 Emergency Case?: No NPO Status NPO Status: NPO Clears >2 hours, Solids >8 hours Anesthesia Plan Resuscitation Status: Full Code Anesthesia Technique: General Anesthesia Airway Planned: Natural Airway Monitors Used: Standard Monitors
[2024-06-03 07:12] VITALS: BMI 41.4
[2024-06-03] MEDS: Normal Saline Flush 10 ML SYR IV (07:55)
--- NOTE | 2024-06-03 08:16 | BOWEL_PTH ---
PATIENT: Marissa Zuluaga LOC: [facility] U#:[id number] AGE/SX: 58/F ROOM: RE06/03/[address]: Jose Enrique Dee MD : 1965 BED: DIS: 06/03/2024 SPEC #: [id number] RECD: 06/03/24 13:00 STATUS: MACHELLE RE #: [id number] JOSÉ MANUEL: 06/03/24 08:[address]: Jose Enrique Dee DEPT: Surgical Specimen RECD BY: Amy Odell ENTERED: 06/03/24 13:02 SP TYPE: Bowel OTHR DR: Seda Estrada DO Tissues: 1 - BIOPSY BOWEL 2 - BIOPSY BOWEL 3 - BIOPSY BOWEL Procedures: GROSS AND MICRO LEVEL 4 Comments: [id number]
[2024-06-03 08:25] VITALS: BP 146/75; PULSE 62; RESP 16; TEMP 36.6; O2SAT 99
--- NOTE | 2024-06-03 08:44 | W.ANESPOSTOP ---
Postoperative Evaluation Date, Time and Location Date Performed: 06/03/24 Time Performed: 08:44 Patient Location: Day Surgery Unit Vital Signs Most Recent Imported Vital Signs: Most Recent Vital Signs Temp Pulse Resp BP Pulse Ox 36.6 C 62 16 146/75 H 99 06/03/24 08:25 06/03/24 08:25 06/03/24 08:25 06/03/24 08:25 06/03/24 08:25 Pain Score Most Recent Pain Score: Most Recent Pain Score Pain Level 0 06/03/24 08:25 Assessment Mental Status: Awake (Alert & Oriented to Patient Baseline) Airway and Respiratory Function: Patent airway with normal (patient baseline) respiratory exam Cardiovascular Function: Hemodynamically Stable Hydration Status: Adequately Hydrated Nausea & Vomiting: No Nausea or Vomiting Pain: Pt. Denies Any Pain Peripheral Nerve Block: Patient did not receive a nerve block
[2024-06-03 08:50] VITALS: BP 145/78; PULSE 76; RESP 18; TEMP 36.6; O2SAT 99
== END 2024-06-03 08:55 | disposition home or self-care (01) ==
LOC: SUR 06:21
PROVIDERS: PCP Student in an Organized Health Care Education/Training Program; Visit Provider Surgery
PROC: 0DJD8ZZ Inspection of Lower Intestinal Tract, Via Natural or Artificial Opening Endoscopic (ICD-10-PCS; CPT 45378; principal; 2024-06-03 07:30)
DX: Z12.11 Encounter for screening for malignant neoplasm of colon (principal); R73.03 Prediabetes; I10 Essential (primary) hypertension; D12.2 Benign neoplasm of ascending colon; K57.30 Diverticulosis of large intestine without perforation or abscess without bleeding; D12.4 Benign neoplasm of descending colon; K63.89 Other specified diseases of intestine
CPT/HCPCS: 45380; 88305; J2704

== ENCOUNTER 2024-07-14 16:26 | Emergency (ER) | payer OTHER, SELFPAY ==
[2024-07-14 16:32] VITALS: BP 160/83; PULSE 82; RESP 12; TEMP 37.3; O2SAT 96
--- NOTE | 2024-07-14 16:45 | DI.CT_ITS ---
Exam(s) CT ABDOMEN PELVIS W EXAM: CT ABDOMEN PELVIS W CLINICAL HISTORY: abd pain TECHNIQUE: Imaging Protocol: Axial computed tomography images with coronal and sagittal reformatted images were created and reviewed. CONTRAST MATERIAL: Intravenous: Omnipaque 350 Contrast volume:100 mL Oral: No COMPARISON: CT CT ABDOMEN PELVIS W from 03/22/[address] CHEST WO from 07/09/2022 FINDINGS: ABDOMEN: Lung Bases: There is a stable 4 mm nodule in the right lower lobe. Liver: There is decreased attenuation of the liver suggesting fatty infiltration. No measurable mass . Portal, Superior Mesenteric, and Splenic Veins: Unremarkable. Gallbladder and Biliary Tract: Cholelithiasis. No biliary ductal dilatation. Pancreas: Normal density, no abnormal calcifications or inflammatory process. Spleen: Normal. Adrenals: No masses seen. Kidneys: Normal size, contour and axis. There is a nonobstructing 2 mm stone in the lower pole of the left kidney. There is no evidence of right nephrolithiasis. There are few tiny hypodensities in th e kidneys which are too small for further characterization but likely reflect small cysts. No follow -up is recommended. Abdominal Aorta: Abdominal portion non-dilated. Bowel: There is diverticulosis seen in the colon. There is bowel wall thickening and pericolonic inf lammation in the proximal sigmoid colon consistent with acute diverticulitis. There is no evidence o f bowel obstruction. The stomach is not completely distended limiting evaluation. Appendix is unrem arkable. Peritoneal Cavity: No ascites, collection or mesenteric inflammatory response. No free air. Lymph Nodes: Within normal limits. Bones: Within normal limits for the patient's age. Soft Tissues: There is a small fat containing umbilical hernia. PELVIS: Bladder: Symmetric distention, no gross wall thickening. Reproductive Organs: There is an IUD in place. Appears in good position. There is a pessary in plac e. There is a 3.2 x 3.4 cm left adnexal cyst. It appears associated with the left ovary. This was present on the examination from 2019. It is shown interval increase in size. Lymph Nodes: Within normal limits. Bones: Within normal limits for the patient's age. IMPRESSION: 1. Findings consistent with acute diverticulitis involving the sigmoid colon. No abscess or free air . 2. Interval increase in size of the left adnexal/ovarian cyst. Pelvic ultrasound is requested for fu rther evaluation. RADIATION DOSE DELIVERED: 1,342.77mGy.cm Total DLP DATA REPOSITORY: All CT scans at this facility are submitted to the National Radiology Data Registry (NRDR) Dose Index Registry (DIR) with the [employer] (A[employer]). RADIATION OPTIMIZATION: All CT scans at this facility use at least one of these dose optimization te chniques: automated exposure control; mA and/or kV adjustment per patient size (includes targeted exa ms where dose is matched to clinical indication); or iterative reconstruction.
[2024-07-14] MEDS: Normal Saline - Diluent 50 ML VIAL IJ (17:49)
[2024-07-14] MEDS: Omnipaque 350 MG/ML 100 ML BTL IJ (17:50)
[2024-07-14 17:58] LABS: Abs Immature Grans 0.03 10^3/uL (0.0-0.06); Absolute Basophil Count 0.05 10^3/uL (0.0-0.2); Absolute Eosinophil Count 0.31 10^3/uL (0.0-0.7); Absolute Lymphocyte Count 1.93 10^3/uL (1.2-3.4); Absolute Monocyte Count 0.65 10^3/uL (0.1-0.8); Absolute Neutrophil Count 4.38 10^3/uL (1.2-6.7); Basophils % 0.7 %; Eosinophils % 4.2 %; HCT 41.1 % (36.0-46.0); HGB 13.7 g/dL (11.2-15.7); Immature Grans % 0.4 %; Lymphocytes % 26.3 %; MCH 29.9 pg (27.0-33.0); MCHC 33.3 % (32.0-36.0); MCV 90 fL (80-95); MPV 9.7 fL (8.0-11.0); Monocytes % 8.8 %; Neutrophils % 59.6 %; Platelet Count 207 10^3/uL (130-400); RBC 4.58 10^6/uL (3.93-5.22); RDW 13.2 % (11.7-14.6); RDW-SD 43.3 fL; WBC 7.35 10^3/uL (4.4-10.8)
[2024-07-14 18:02] LABS: ESR 6 mm/hr (0-30)
[2024-07-14 18:10] LABS: ALT 38 U/L (14-59); AST 20 U/L (15-37); Albumin 3.4 g/dL (3.4-5.0); Alkaline Phosphatase 93 U/L (46-116); Anion Gap 3.8 mmol/L (3-11); BUN 15 mg/dL (7-18); Bilirubin, Total 0.69 mg/dL (0.2-1.0); C-Reactive Protein 4.17 mg/dL (<or=0.5); CO2 31.2 mmol/L (21.0-32.0); CREATININE 0.8 mg/dL (0.55-1.02); Calcium 8.3 mg/dL (8.5-10.1); Chloride 106 mmol/L (98-107); Estimated GFR 84.82 (mL/min/1.73m2); Glucose 137 mg/dL (74-106); Potassium 3.6 mmol/L (3.5-5.1); Sodium 141 mmol/L (136-145)
--- NOTE | 2024-07-14 18:14 | ED.GENADUL_ITS ---
Discharge Plan Disposition Patient Disposition: Home Condition: Stable Discharge Details Clinical Impression: Acute diverticulitis, Abdominal pain, left lower quadrant Primary Care Provider: Marilee Mccullough ED Provider: Suhas Salmon Home Meds and New Rx's Prescriptions: New tramadol 25 mg tablet 25 mg PO Q6H PRN (Reason: pain) Qty: 10 0RF ondansetron 4 mg tablet,disintegrating 4 mg PO Q6H PRN (Reason: nausea and vomiting) Qty: 30 0RF No Action orphenadrine citrate 100 mg tablet extended release 100 mg PO BID PRN Patient Comments: uses PRN for muscle spasms (DME) Compact Compressor Nebulizer Misc See Rx Instructions .ROUTE .MEDSUPPLY Qty: 1 0RF Rx Instructions: As directed milk thistle 150 mg capsule 150 mg PO BID Qty: 1 0RF Rx Instructions: give with meal/snack (DME) Migrovent on HOLD See Rx Instructions .Route .MEDSUPPLY Qty: 1 0RF Rx Instructions: on hold per KG 2' liver (preventive for migraine) Enbrel 50 mg/mL (1 mL) syringe 50 mg subcut QWEEK Patient Comments: 01/18/23 [facility] RHEUM NOTE.HE 01/14/23 rheum note. trial switch from humira. furosemide 20 mg tablet 20 mg PO DAILY PRN (Reason: Severe edema) Qty: 30 1RF Rx Instructions: Trial for excessive edema, corey post call; monitor closely, incl electrolytes albuterol sulfate 90 mcg/actuation aerosol powdr breath activated 1 - 2 inh IH Q4H PRN (Reason: shortness of breath or wheezing) Qty: 1 3RF Rx Instructions: Dispense brand of alb inhaler as best covered by patient's insurance. cholecalciferol (vitamin D3) 3,000 unit tablet 4,000 unit PO DAILY Qty: 90 5RF omega-3 fatty acids 1,000 mg capsule 1,000 mg PO DAILY Qty: 90 3RF albuterol sulfate 2.5 mg/0.5 mL solution for nebulization 2.5 mg IH Q4H PRN (Reason: shortness of breath or wheezing) Qty: 120 3RF Pennsaid 2 % solution in packet 1 packet topical BID PRN Estring 2 mg (7.5 mcg /24 hour) ring 1 vag ring VG [id number] Qty: 1 3RF Rx Instructions: Continue metformin 750 mg tablet extended release 24 hr 750 mg PO DAILY Qty: 90 3RF irbesartan 150 mg tablet 150 mg PO DAILY Qty: 90 3RF Rx Instructions: In place of valsartan hydrochlorothiazide 12.5 mg tablet 12.5 mg PO DAILY Qty: 90 3RF fluticasone furoate-vilanterol [Breo Ellipta] 200-25 mcg/dose blister with device 1 inh inhalation DAILY Qty: 60 6RF prednisone 5 mg tablet See Rx Instructions PO DAILY PRN (Reason: Joint pain) Rx Instructions: 2.5-5 mg orally daily PRN; Up to 7 days rizatriptan [Maxalt] 10 mg tablet 10 mg PO .COMPLEX Qty: 30 2RF Rx Instructions: 1 tab x 1 dose, prn may repeat at 2 hour interval, do not exceed 30mg in 24 hours Enbrel SureClick 50 mg/mL (1 mL) pen injector 50 mg SUBCUT .Q1W Discharge Instructions Instructions: Diverticulitis (DC) Additional Instructions: Your lab work today is fairly unremarkable Your CT imaging demonstrates acute uncomplicated diverticulitis. Current recommendations are for pain control, clear liquid diet and advance as tolerated. You have been provided with Zofran to go home with as well as a prescription for Zofran and Ultram. Take as needed for pain. Otherwise you can take Tylenol. Avoid NSAIDs. You should have a repeat colonoscopy 6 to 8 weeks after resolution of symptoms, please follow-up with general surgery to discuss this given that you have just recently had a colonoscopy HPI General Date/Time Provider Initiated Documentation: 07/14/24 16:46 . Limitations to Documentation: no limitations . Information obtained by: patient . HPI Narrative: 58-year-old female with past medical history of cholelithiasis, hypertension, prediabetes, diverticulitis presents for evaluation of left lower quadrant abdominal pain. She reports that symptoms started last night. She has had waves of pain throughout the day. Denies fever, but has had chills and bodyaches since last night. Has had no nausea or vomiting. Feels like she needs to go to the bathroom, but has not had an increased bowel movement. Denies any blood in her bowels. Related Data Home Medications ?Medication ?Instructions ?Recorded ?Confirmed cholecalciferol (vitamin D3) 75 4,000 unit PO DAILY #90 tabs 11/04/18 07/14/24 mcg (3,000 unit) tablet omega-3 fatty acids 1,000 mg 1,000 mg PO DAILY #90 caps 11/04/18 07/14/24 capsule orphenadrine citrate 100 mg 100 mg PO BID PRN 01/03/19 07/14/24 tablet,extended release nebulizers (Compact Compressor #1 ea 08/30/19 07/14/24 Nebulizer) albuterol sulfate 2.5 mg/0.5 mL 2.5 mg (0.5 mL) inhalation Q4H PRN 06/20/21 07/14/24 solution for nebulization shortness of breath or wheezing #120 ea diclofenac sodium 2 % topical 1 packet topical BID PRN 01/22/22 07/14/24 solution in packet (Pennsaid) Migrovent on HOLD #1 ea 07/24/22 07/14/24 milk thistle 150 mg capsule 150 mg PO BID #1 cap 07/24/22 07/14/24 etanercept 50 mg/mL (1 mL) 50 mg subcut QWEEK 01/27/23 07/14/24 subcutaneous syringe (Enbrel) furosemide 20 mg tablet 20 mg PO DAILY PRN Severe edema 01/27/23 07/14/24 #30 tabs albuterol sulfate 90 mcg/actuation 1 - 2 inh inhalation Q4H PRN 03/16/23 07/14/24 breath activated powder inhaler shortness of breath or wheezing #1 ea estradiol 2 mg (7.5 mcg/24 hour) 1 vag ring vaginal [id number] #1 ea 07/21/23 07/14/24 vaginal ring (Estring) metformin 750 mg tablet,extended 750 mg PO DAILY #90 tabs 08/30/23 07/14/24 release 24 hr irbesartan 150 mg tablet 150 mg PO DAILY #90 tabs 09/11/23 07/14/24 hydrochlorothiazide 12.5 mg tablet 12.5 mg PO DAILY #90 tabs 01/05/24 07/14/24 etanercept 50 mg/mL (1 mL) 50 mg subcut .Q1W 01/20/24 07/14/24 subcutaneous pen injector (Enbrel SureClick) fluticasone furoate 200 1 inh inhalation DAILY #60 ea 03/29/24 07/14/24 mcg-vilanterol 25 mcg/dose inhalation powder (Breo Ellipta) prednisone 5 mg tablet See Rx Instructions PO DAILY PRN 05/17/24 07/14/24 Joint pain rizatriptan 10 mg tablet (Maxalt) 10 mg PO .COMPLEX #30 tabs 06/30/24 07/14/24 ondansetron 4 mg disintegrating 4 mg PO Q6H PRN nausea and 07/14/24 tablet vomiting #30 tabs tramadol 25 mg tablet 25 mg PO Q6H PRN pain #10 tabs 07/14/24 Previous Rx's ?Medication ?Instructions ?Recorded cholecalciferol (vitamin D3) 75 4,000 unit PO DAILY #90 tabs 11/04/18 mcg (3,000 unit) tablet omega-3 fatty acids 1,000 mg 1,000 mg PO DAILY #90 caps 11/04/18 capsule nebulizers (Compact Compressor #1 ea 08/30/19 Nebulizer) albuterol sulfate 2.5 mg/0.5 mL 2.5 mg (0.5 mL) inhalation Q4H PRN 06/20/21 solution for nebulization shortness of breath or wheezing #120 ea Migrovent on HOLD #1 ea 07/24/22 milk thistle 150 mg capsule 150 mg PO BID #1 cap 07/24/22 furosemide 20 mg tablet 20 mg PO DAILY PRN Severe edema 01/27/23 #30 tabs albuterol sulfate 90 mcg/actuation 1 - 2 inh inhalation Q4H PRN 03/16/23 breath activated powder inhaler shortness of breath or wheezing #1 ea estradiol 2 mg (7.5 mcg/24 hour) 1 vag ring vaginal [id number] #1 ea 07/21/23 vaginal ring (Estring) metformin 750 mg tablet,extended 750 mg PO DAILY #90 tabs 08/30/23 release 24 hr irbesartan 150 mg tablet 150 mg PO DAILY #90 tabs 09/11/23 hydrochlorothiazide 12.5 mg tablet 12.5 mg PO DAILY #90 tabs 01/05/24 fluticasone furoate 200 1 inh inhalation DAILY #60 ea 03/29/24 mcg-vilanterol 25 mcg/dose inhalation powder (Breo Ellipta) rizatriptan 10 mg tablet (Maxalt) 10 mg PO .COMPLEX #30 tabs 06/30/24 ondansetron 4 mg disintegrating 4 mg PO Q6H PRN nausea and 07/14/24 tablet vomiting #30 tabs tramadol 25 mg tablet 25 mg PO Q6H PRN pain #10 tabs 07/14/24 Allergies Allergy/AdvReac Type Severity Reaction Status Date / Time naproxen (From Naprelan) Allergy Intermediate Hives. Verified 07/14/24 16:39 Long acting naproxen. Tolerates Naproxen fine Tetanus Vaccines and Toxoid AdvReac Intermediate Other (See Verified 07/14/24 16:39 Comment) lisinopril AdvReac Mild Other (See Uncoded 07/14/24 16:39 Comment) General Stated Complaint: Abd Prob LUCERO: 3 Exam Narrative Exam Narrative: Review of Systems: All systems reviewed & are unremarkable except as noted in HPI and below Well-developed, no acute distress NCAT PERRL, normal conjunctiva RRR Unlabored respiratory effort Soft, left lower quadrant abdominal pain with guarding Course Vital Signs Vital signs: Vital Signs Temperature 37.3 C 07/14/24 16:32 Pulse 82 07/14/24 16:32 Respiratory Rate 12 07/14/24 16:32 Blood Pressure 160/83 H 07/14/24 16:32 Pulse Oximetry 96 07/14/24 16:32 Temperature 37.3 C 07/14/24 16:32 Temperature Source Oral 07/14/24 16:32 Pulse 82 07/14/24 16:32 Respiratory Rate 12 07/14/24 16:32 Blood Pressure 160/83 H 07/14/24 16:32 Blood Pressure Position Sitting 07/14/24 16:32 Pulse Oximetry 96 07/14/24 16:32 Oxygen Delivery Method Room Air 07/14/24 16:32 Oxygen Flow Rate 0 07/14/24 16:32 Pain Level 6 07/14/24 18:05 Lab/Test Results Lab/Test Results: Laboratory Tests Range/Units 07/14/24 17:46 WBC (4.4-10.8) 10^3/uL 7.35 RBC (3.93-5.22) 10^6/uL 4.58 Hgb (11.2-15.7) g/dL 13.7 Hct (36.0-46.0) % 41.1 MCV (80-95) fL 90 MCH (27.0-33.0) pg 29.9 MCHC (32.0-36.0) % 33.3 RDW (11.7-14.6) % 13.2 Plt Count (130-400) 10^3/uL 207 MPV (8.0-11.0) fL 9.7 Immature Gran % % 0.4 Neutrophils % % 59.6 Lymphocytes % % 26.3 Monocytes % % 8.8 Eosinophils % % 4.2 Basophils % % 0.7 Nucleated RBC % (0.0-0.3) % 0.0 Absolute Neutrophils (1.2-6.7) 10^3/uL 4.38 Absolute Lymphocytes (1.2-3.4) 10^3/uL 1.93 Absolute Monocytes (0.1-0.8) 10^3/uL 0.65 Absolute Eosinophils (0.0-0.7) 10^3/uL 0.31 Absolute Basophils (0.0-0.2) 10^3/uL 0.05 ESR (0-30) mm/hr 6 Sodium (136-145) mmol/L 141 Potassium (3.5-5.1) mmol/L 3.6 Chloride (98-107) mmol/L 106 Carbon Dioxide (21.0-32.0) mmol/L 31.2 Anion Gap (3-11) mmol/L 3.8 BUN (7-18) mg/dL 15 Creatinine (0.55-1.02) mg/dL 0.8 Est GFR (CKD-EPI 2020) (mL/min/1.73m2) 84.82 Glucose (74-106) mg/dL 137 H Calcium (8.5-10.1) mg/dL 8.3 L Total Bilirubin (0.2-1.0) mg/dL 0.69 AST (15-37) U/L 20 ALT (14-59) U/L 38 Alkaline Phosphatase (46-116) U/L 93 C-Reactive Protein (<or=0.5) mg/dL 4.17 H Total Protein (6.4-8.2) g/dL 7.0 Albumin (3.4-5.0) g/dL 3.4 Medical Decision Making Emergent evaluation of left lower quadrant abdominal pain. Initial differential includes diverticulitis, renal colic, UTI. Patient has had prior episode of diverticulitis. Is afebrile at this time. Does have pain on examination. Plan for lab work, antiemetic and CT imaging Lab reviewed, leukocytosis or left shift. Electrolytes without significant derangement. Her CRP is slightly elevated at 4, ESR is not elevated. CT imaging does reveal acute uncomplicated diverticulitis without abscess or perforation. Given her fairly benign clinical examination and lab work, no indication for antibiotics. Discharged with antiemetic and pain control. Return precautions advised. Recommend follow-up with general surgery clinic for repeat colonoscopy after resolution however patient did receive a colonoscopy 3 weeks ago, so it will be at their discretion. Quality:SDOH Health Related Social Needs: No Data to Display PFSH All Active Problems (Updated 07/14/24 @ 18:40 by Suhas Salmon MD) Abdominal pain, left lower quadrant (Acute) Acute diverticulitis (Acute) Encounter for screening colonoscopy (Acute) Generalized hypermobility of joints (Acute) Laceration of left index finger w/o foreign body w/o damage to nail (Acute) DORON on CPAP (Chronic) Cholelithiases (Acute) per 07/2023 Abd US (no stones) Hepatomegaly (Acute) per 07/2023 Abd US Pain in right foot (Acute) Pain in right ankle (Acute) Pain in left ankle (Acute) Need for immunization against influenza (Acute) Pain in joint, foot, left (Acute) Ingrowing left great toenail (Acute) At risk for osteoporosis (Acute) Mandibular dysfunction (Acute) Mild degeneration of the left mandibular condyle (MRI, Jun 2022) TMJ articul disc disordr (Acute) Displaced abnormal meniscus, right TMJ (MRI June 2022) Jaw anomaly (Acute) Abn MRI, 07/15/22 ([facility])(per jaw doc in [place], Dr Yo Willis). [ ] [facility] Referral to Dr. Artur Huang -- 10/2022 Primary osteoarthritis (Acute) Hypertension (Chronic) Prediabetes (Acute) per [facility] GI note, 01/03/22 (A1C 6.2). Metformin started. Nonalcoholic steatohepatitis (RPYOR) (Acute) per 07/2023 Abd US .. 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 happening more frequently .. inhaling of food (even when quietly sitting/no talking) with vocal chord affect (cannot talk; appears to be choking). No dysphagia, no choking. Lung nodule (Acute) 04/20/20 [facility] 2 mm right lobe- does not need to be followed. 5 mm left lower lobe-follow with noncontrast chest CT sept 2020 Sleep apnea (Acute) 04/20/20-Pulmonary Dr Harper. refers oral appliance. 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 improved w/ Methotrex, 2020. Mild obstructive sleep apnea (Acute 02/01/20) CPAP Edema (Acute) Episodes of severe edema: trial LASIX PRN. LE Edema, relieved with HCTZ Erosive (osteo)arthritis (Acute) of R Hand. 11/08/19 [facility] Ortho Abnormal uterine bleeding (AUB) (Acute) Estring started by [facility] 11/04/2009 Asthma (Chronic) Migraine headache with aura (Acute) Vitamin D deficiency (Acute) Osteoarthritis (Chronic) Medical History Tubular adenoma of colon (~05/2024) COVID sx onset 09/23/22, positive test result 09/24/22 Conjunctival cyst of right eye and blocked tear duct COVID-19 Resolved .. 07/11/21 (+) = day 1 of symptoms. Aspiration of food Incomplete, but enough to affect vocal chords .. cannot speak to state she is not choking.. (episodic, but notably increased) IGTN (ingrowing toe nail) Hx nail removal .. may need it for left great toe. 03/18/21 [facility]: avulsion nail w/matrix(left medial hallux nail border), Acute diverticulitis CT confirmed--Cipro + Flagyl Abdominal pain Lower central abdominal Pain into LLQ; possible diverticulitis? (02/2020) [ ] CT Diverticulosis per colo, 2019 History of postoperative nausea Internal derangement of left knee Injected: 11/15/2018 Family history of breast cancer Mammo NEG 08/2018. Mother recetnly Dx with breast cancer .. waiting genetic cancer, possible gen couns [ ] Family hx of colon cancer requiring screening colonoscopy delivery delivered 1986 Seizures Nearly on year post med d/c, no sz. [ ] Neuro for estab and headache review They are awake seizures, I havent had one in 8 years Surgical History Hx of section History of liver biopsy 12/20/21 DH H/O nasal septoplasty History of recent maxillofacial surgery Bilateral sagittal split osteotomy with mandibular advancement with [place] I setback (24 years old) History of colonoscopy (~05/2024) 03/17/19 History of ankle surgery Right Hx of arthroscopy of knee History of mandibular surgery Hx of exploratory laparotomy History of dilation and curettage Hysteroscopy, D&C AUB Status post creation of urethral sling by suprapubic approach bladder sling also Congenital fusion of spine C4-C5 Family History Mother Colon cancer High cholesterol Hypertension Breast cancer Pulmonary embolism COVID-19 Father COVID-19 Other Family history of breast cancer Family history of malignant melanoma Family hx of colon cancer requiring screening colonoscopy Social History Smoking/Tobacco Use Status: Never Smoking risk assessment performed?: Yes Alcohol Intake: current Alcohol Intake frequency: a few times a week Alcohol type: wine Drug use: Never Substance use type: does not use Adopted: No Household members: spouse and children Housing: house Number of Children: 3 Education Level: master's degree 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
[2024-07-14 18:58] VITALS: BP 144/92; PULSE 74; RESP 16; TEMP 37.1; O2SAT 97
[2024-07-14] MEDS: Ondansetron O.D.T. 4 MG TABEF, 3 TABS/BTL PO (18:58)
== END 2024-07-14 18:58 | disposition home or self-care (01) ==
PROVIDERS: Emergency Provider Emergency Medicine; PCP Nurse Practitioner Adult Health
DX: R10.32 Left lower quadrant pain (principal); K57.32 Diverticulitis of large intestine without perforation or abscess without bleeding; I10 Essential (primary) hypertension; Z79.84 Long term (current) use of oral hypoglycemic drugs
CPT/HCPCS: 36415; 80053; 85652; 99285; 74177; 85025; 86140; 99284; J3490

== ENCOUNTER 2024-10-25 10:19 | Outpatient (CLI) | payer OTHER, SELFPAY ==
[2024-10-25 11:20] LABS: Prothrombin Time 9.8 sec (9.1-11.1)
[2024-10-25 11:48] LABS: Calculated LDL 93 mg/dL (<100); Cholesterol 182 mg/dL (<200); HDL Cholesterol 74 mg/dL (>or=50); Triglyceride 76 mg/dL (<150); Vitamin D 25 Total 43 ng/mL (30-100)
[2024-10-25 19:17] LABS: CA 125 5 U/mL (<30)
[2024-10-26 09:48] LABS: AFP Tumor Marker 2.8 ng/mL (<8.1)
== END 2024-10-25 10:20 | disposition home or self-care (01) ==
LOC: LBO 10:19
PROVIDERS: Student in an Organized Health Care Education/Training Program; PCP Nurse Practitioner Adult Health; Visit Provider Nurse Practitioner Adult Health
DX: K90.9 Intestinal malabsorption, unspecified (principal); Z13.6 Encounter for screening for cardiovascular disorders; R73.03 Prediabetes; N83.8 Other noninflammatory disorders of ovary, fallopian tube and broad ligament; K74.60 Unspecified cirrhosis of liver
CPT/HCPCS: 36415; 80061; 82306; 86304; 82105; 83036; 85610

== ENCOUNTER 2024-12-12 15:53 | Outpatient (CLI) | payer OTHER, SELFPAY ==
--- NOTE | 2024-12-12 15:42 | DI.RAD_ITS ---
Exam(s) XR CHEST 2V PA LATERAL EXAM: XR CHEST 2V PA LATERAL CLINICAL HISTORY: cough, asthma, J45.909 TECHNIQUE: 2D digital imaging was performed. Two views. COMPARISON: CT CT CHEST WO from 07/09/2022 FINDINGS: HEART: Normal size. Aorta: Not dilated. PULMONARY VASCULATURE: Normal. MEDIASTINUM: Unremarkable. LUNGS: Clear. PLEURAL SPACE: No pleural effusion or pneumothorax. BONE:Unremarkable for age. SOFT TISSUES: Unremarkable. IMPRESSION: No acute abnormality. DATA REPOSITORY: RADIATION DOSE DELIVERED:
== END 2024-12-12 16:13 ==
LOC: DI 16:15
PROVIDERS: PCP Nurse Practitioner Adult Health; Visit Provider Physician Assistant Surgical
DX: J45.909 Unspecified asthma, uncomplicated (principal)
CPT/HCPCS: 71046

== ENCOUNTER 2024-12-14 08:17 | Outpatient (CLI) | payer OTHER, SELFPAY ==
[2024-12-14 08:25] LABS: Abs Immature Grans 0.03 10^3/uL (0.0-0.06); Absolute Basophil Count 0.07 10^3/uL (0.0-0.2); Absolute Eosinophil Count 0.34 10^3/uL (0.0-0.7); Absolute Lymphocyte Count 2.29 10^3/uL (1.2-3.4); Absolute Monocyte Count 0.55 10^3/uL (0.1-0.8); Absolute Neutrophil Count 3.66 10^3/uL (1.2-6.7); Eosinophils % 4.9 %; HCT 41.8 % (36.0-46.0); HGB 13.5 g/dL (11.2-15.7); Immature Grans % 0.4 %; MCH 29.5 pg (27.0-33.0); MCHC 32.3 % (32.0-36.0); MCV 92 fL (80-95); MPV 9.4 fL (8.0-11.0); Monocytes % 7.9 %; Neutrophils % 52.8 %; Platelet Count 191 10^3/uL (130-400); RBC 4.57 10^6/uL (3.93-5.22); RDW 13.7 % (11.7-14.6); RDW-SD 46.5 fL; WBC 6.94 10^3/uL (4.4-10.8)
[2024-12-14 09:45] LABS: ALT 65 U/L (14-59); AST 29 U/L (15-37); Albumin 3.4 g/dL (3.4-5.0); Alkaline Phosphatase 82 U/L (46-116); Anion Gap 4.5 mmol/L (3-11); BUN 24 mg/dL (7-18); Bilirubin, Total 0.8 mg/dL (0.2-1.0); CO2 32.5 mmol/L (21.0-32.0); Calcium 8.9 mg/dL (8.5-10.1); Chloride 105 mmol/L (98-107); Estimated GFR 64.49 (mL/min/1.73m2); Glucose 128 mg/dL (74-106); Potassium 3.5 mmol/L (3.5-5.1); Sodium 142 mmol/L (136-145)
== END 2024-12-14 08:18 | disposition home or self-care (01) ==
LOC: LBO 08:18
PROVIDERS: PCP Nurse Practitioner Adult Health; Visit Provider Nurse Practitioner
DX: L40.50 Arthropathic psoriasis, unspecified (principal); Z79.899 Other long term (current) drug therapy
CPT/HCPCS: 36415; 80053; 85025

== ENCOUNTER 2025-01-12 17:40 | Emergency (ER) | payer OTHER, SELFPAY ==
[2025-01-12 17:42] VITALS: BP 155/56; PULSE 80; RESP 16; TEMP 36.8; O2SAT 98
--- NOTE | 2025-01-12 17:51 | ED.GENADUL_ITS ---
Discharge Plan Disposition Patient Disposition: Home Condition: Improving Discharge Details Clinical Impression: Gastrocnemius muscle tear Primary Care Provider: Marilee Mccullough ED Provider: Porter Dockery Home Meds and New Rx's Prescriptions: Continued orphenadrine citrate 100 mg tablet extended release 100 mg PO BID PRN Patient Comments: uses PRN for muscle spasms (DME) Compact Compressor Nebulizer Misc See Rx Instructions .ROUTE .MEDSUPPLY Qty: 1 0RF Rx Instructions: As directed Enbrel 50 mg/mL (1 mL) syringe 50 mg subcut QWEEK Patient Comments: 01/18/23 [facility] RHEUM NOTE.HE 01/14/23 rheum note. trial switch from humira. furosemide 20 mg tablet 20 mg PO DAILY PRN (Reason: Severe edema) Qty: 30 1RF Rx Instructions: Trial for excessive edema, corey post call; monitor closely, incl electrolytes cholecalciferol (vitamin D3) 3,000 unit tablet 4,000 unit PO DAILY Qty: 90 5RF omega-3 fatty acids 1,000 mg capsule 1,000 mg PO DAILY Qty: 90 3RF irbesartan 150 mg tablet 150 mg PO DAILY Qty: 90 3RF Rx Instructions: In place of valsartan milk thistle 150 mg capsule 150 mg PO BID Qty: 1 0RF Rx Instructions: give with meal/snack--hepatic steatosis Spiriva Respimat 2.5 mcg/actuation mist 2 puff inhalation DAILY Qty: 4 6RF Pennsaid 2 % solution in packet 1 packet topical BID PRN metformin 750 mg tablet extended release 24 hr 750 mg PO DAILY Qty: 90 3RF rizatriptan [Maxalt] 10 mg tablet 10 mg PO .COMPLEX Qty: 30 2RF Rx Instructions: 1 tab x 1 dose, prn may repeat at 2 hour interval, do not exceed 30mg in 24 hours Estring 2 mg (7.5 mcg /24 hour) ring 1 vag ring VG [id number] Qty: 1 3RF Rx Instructions: Continue albuterol sulfate 90 mcg/actuation aerosol powdr breath activated 2 inh IH Q4H PRN (Reason: shortness of breath or wheezing) Qty: 1 12RF Rx Instructions: Dispense brand of alb inhaler as best covered by patient's insurance. fluticasone propion-salmeterol [Advair HFA] 230-21 mcg/actuation HFA aerosol inhaler 2 puff inhalation BID Qty: 12 12RF Rx Instructions: administer with spacer ipratropium-albuterol 0.5 mg-3 mg(2.5 mg base)/3 mL solution for nebulization 3 ml inhalation Q4H PRN (Reason: wheezing) Qty: 180 12RF hydrochlorothiazide 12.5 mg tablet 12.5 mg PO DAILY Qty: 90 3RF Discharge Instructions Instructions: Lower Extremity Muscle Strain (DC) Discharge Data Discharge Physician: Porter Dockery HPI General Date/Time Provider Initiated Documentation: 01/12/25 17:51 . HPI Narrative: Patient presents to the emergency department after she woke up this morning after she had a very severe leg cramp in her calf that would not resolve eventually started having pain in the calfs and noticed later little ecchymosis in the lower leg. Related Data Home Medications ?Medication ?Instructions ?Recorded ?Confirmed cholecalciferol (vitamin D3) 75 4,000 unit PO DAILY #9 0 tabs 11/04/18 01/12/25 mcg (3,000 unit) tablet omega-3 fatty acids 1,000 mg 1,000 mg PO DAILY #90 cap s 11/04/18 01/12/25 capsule orphenadrine citrate 100 mg 100 mg PO BID PRN 01/03/19 01/12/25 tablet,extended release nebulizers (Compact Compressor #1 ea 08/30/19 01/12/25 Nebulizer) diclofenac sodium 2 % topical 1 packet topical BID PRN 01/22/22 01/12/25 solution in packet (Pennsaid) etanercept 50 mg/mL (1 mL) 50 mg subcut QWEEK 01/27/23 01/12/25 subcutaneous syringe (Enbrel) furosemide 20 mg tablet 20 mg PO DAILY PRN Severe ed davin 01/27/23 01/12/25 #30 tabs metformin 750 mg tablet,extended 750 mg PO DAILY #90 t abs 08/30/23 01/12/25 release 24 hr rizatriptan 10 mg tablet (Maxalt) 10 mg PO .COMPLEX #3 0 tabs 06/30/24 01/12/25 estradiol 2 mg (7.5 mcg/24 hour) 1 vag ring vaginal Q3 MONTHS #1 ea 07/21/24 01/12/25 vaginal ring (Estring) albuterol sulfate 90 mcg/actuation 2 inh inhalation Q4 H PRN shortness 09/05/24 01/12/25 breath activated powder inhaler of breath or wheezing #1 ea irbesartan 150 mg tablet 150 mg PO DAILY #90 tabs 01/12/25 milk thistle 150 mg capsule 150 mg PO BID #1 cap 09/2101/12/25 fluticasone propionate 230 2 puff inhalation BID #12 g marcia 12/12/24 01/12/25 mcg-salmeterol 21 mcg/actuation HFA inhaler (Advair HFA) ipratropium 0.5 mg-albuterol 3 mg 3 ml inhalation Q4H PRN wheezing 12/20/24 01/12/25 (2.5 mg base)/3 mL nebulization #180 mL soln hydrochlorothiazide 12.5 mg tablet 12.5 mg PO DAILY #9 0 tabs 12/21/24 01/12/25 tiotropium bromide 2.5 2 puff inhalation DAILY #4 g marcia 12/21/24 01/12/25 mcg/actuation mist for inhalation (Spiriva Respimat) Previous Rx's ?Medication ?Instructions ?Recorded cholecalciferol (vitamin D3) 75 4,000 unit PO DAILY #9 0 tabs 11/04/18 mcg (3,000 unit) tablet omega-3 fatty acids 1,000 mg 1,000 mg PO DAILY #90 cap s 11/04/18 capsule nebulizers (Compact Compressor #1 ea 08/30/19 Nebulizer) furosemide 20 mg tablet 20 mg PO DAILY PRN Severe ed davin 01/27/23 #30 tabs metformin 750 mg tablet,extended 750 mg PO DAILY #90 t abs 08/30/23 release 24 hr rizatriptan 10 mg tablet (Maxalt) 10 mg PO .COMPLEX #3 0 tabs 06/30/24 estradiol 2 mg (7.5 mcg/24 hour) 1 vag ring vaginal Q3 MONTHS #1 ea 07/21/24 vaginal ring (Estring) albuterol sulfate 90 mcg/actuation 2 inh inhalation Q4 H PRN shortness 09/05/24 breath activated powder inhaler of breath or wheezing #1 ea irbesartan 150 mg tablet 150 mg PO DAILY #90 tabs milk thistle 150 mg capsule 150 mg PO BID #1 cap 09/21 fluticasone propionate 230 2 puff inhalation BID #12 g marcia 12/12/24 mcg-salmeterol 21 mcg/actuation HFA inhaler (Advair HFA) ipratropium 0.5 mg-albuterol 3 mg 3 ml inhalation Q4H PRN wheezing 12/20/24 (2.5 mg base)/3 mL nebulization #180 mL soln hydrochlorothiazide 12.5 mg tablet 12.5 mg PO DAILY #9 0 tabs 12/21/24 tiotropium bromide 2.5 2 puff inhalation DAILY #4 g marcia 12/21/24 mcg/actuation mist for inhalation (Spiriva Respimat) Allergies Allergy/AdvReac Type Severity Reaction Status Date / Time naproxen (From Naprelan) Allergy Intermediate Hives. Verified 01/12/25 17:47 Long acting naproxen. Tolerates Naproxen fine Tetanus Vaccines and Toxoid AdvReac Intermediate Other (See Verified 01/12/25 17:47 Comment) lisinopril AdvReac Mild Other (See Uncoded 01/12/25 17:47 Comment) General Stated Complaint: Orthopedic LUCERO: 4 Review of Systems Narrative: Review of Systems: Constitutional: No fevers, chills, sweats Eye: No recent visual problems ENT: No ear pain, nasal congestion, sore throat Respiratory: No shortness of breath, cough Cardiovascular: No Chest pain, palpitations, syncope Gastrointestinal: No nausea, vomiting, diarrhea Genitourinary: No hematuria Neymar/Lymph: Negative for bruising tendency, swollen lymph glands Endocrine: Negative for excessive thirst, excessive hunger Musculoskeletal: No back pain, neck pain, joint pain, muscle pain, decreased range of motion Integumentary: No rash, pruritus, abrasions Neurologic: Alert & oriented X 4 Psychiatric: No anxiety, depression Exam Narrative Exam Narrative: Exam; vitals signs as reported above normal Constitutional; In no acute distress, afebrile General: cooperative, healthy appearing, comfortable and no acute distress HEENT: Head: normal to inspection, no palpable skull fracture and normocephalic atraumatic Eyes: : appearance normal, both eyes and all related structures EOM intact bilaterally Pupils: PERRL : conjunctiva normal Direct ophthalmoscopy: normal light reflex, normal conjunctiva, normal visual acuity Ears: Normal TM, normal external canal Nose: normal no rhinorreha Neck no JVD, supple non tender Neck: normal visual inspection, full ROM and no lymphadenopathy Chest: normal inspection of the chest Respiratory : normal respiratory effort and able to speak in complete sentences no wheezing no rales Cardio Rate: regular rate, rhythm: regular rhythm normal heart sounds S1 and S2 no murmurs, gallops, or rubs GI : normal to inspection, normal bowel sounds, soft, non tender, non distended, no organomegaly Back/Spine/ no CVA tenderness Thoracic/Lumbar Spine: no tenderness or deformities Skin no rashes or lesions Neuro: patient alert oriented x 4 and no meningeal signs, Cranial Nerves: CN's II-XI intact bilaterally, Cognition: normal cognition, Speech: speech normal, Gait: normal gait, Depp tendon reflexes normal 2+ muscle strength 5/5 bilaterally Extremities, no edema, full range of motion, normal strength tenderness to palpation to the medial aspect of the left calf with ecchymosis in the lower third of the leg Course Vital Signs Vital signs: Vital Signs Temperature 36.8 C 01/12/25 17:42 Pulse 80 01/12/25 17:42 Respiratory Rate 16 01/12/25 17:42 Blood Pressure 155/56 H 01/12/25 17:42 Pulse Oximetry 98 01/12/25 17:42 Temperature 36.8 C 01/12/25 17:42 Pulse 80 01/12/25 17:42 Respiratory Rate 16 01/12/25 17:42 Blood Pressure 155/56 H 01/12/25 17:42 Pulse Oximetry 98 01/12/25 17:42 Pain Level 2 01/12/25 17:42 Medical Decision Making Patient presents to the emergency department stating that she experienced a cramp in her calf muscles of the left lower extremity 2 days ago and then subsequently the pain has continued and developed a small ecchymosis of the lower extremity. She came here sent to rule out DVT. DVT study was performed by me left lower extremity by POCUS and there is no evidence of DVT there is some torn muscle fibers of the mediAL GASTROCNEMIUS with hematoma that goes down to the ankle through the fascial planes between the subcutaneous tissue and the fascial of the Gaster anemias muscles, she will be discharged home and she will follow-up and will take NSAIDs for this and rest Medical Records Medical records reviewed: Yes I reviewed the patient's medical records. [facility] All Active Problems (Updated 01/12/25 @ 19:56 by Porter Dockery MD) Gastrocnemius muscle tear (Acute) Mass of left ovary (Acute) Encounter for screening colonoscopy (Acute) Generalized hypermobility of joints (Acute) Laceration of left index finger w/o foreign body w/o damage to nail (Acute) DORON on CPAP (Chronic) Cholelithiases (Acute) per 07/2023 Abd US (no stones) Hepatomegaly (Acute) per 07/2023 Abd US Pain in right foot (Acute) Pain in right ankle (Acute) Pain in left ankle (Acute) Need for immunization against influenza (Acute) Pain in joint, foot, left (Acute) At risk for osteoporosis (Acute) Mandibular dysfunction (Acute) 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 [ ] [facility] Referral to Dr. Artur Huang -- 10/2022 Primary osteoarthritis (Acute) Hypertension (Chronic) Prediabetes (Acute) per [facility] GI note, 01/03/22 (A1C 6.2). Metformin started. Nonalcoholic steatohepatitis (PRYOR) (Acute) per 07/2023 Abd US .. 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 happening more frequently .. inhaling of food (even when quietly sitting/no talking) with vocal chord affect (cannot talk; appears to be choking). No dysphagia, no choking. Lung nodule (Acute) 04/20/20 Joselin Alejandro 2 mm right lobe- does not need to be followed. 5 mm left lower lobe-follow with noncontrast chest CT feb 2021 Sleep apnea (Acute) 04/20/20-Pulmonary Dr Harper. refers oral appliance. 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 improved w/ Methotrex, 2020. Mild obstructive sleep apnea (Acute 02/01/20) CPAP Edema (Acute) Episodes of severe edema: trial LASIX PRN. LE Edema, relieved with HCTZ Erosive (osteo)arthritis (Acute) of R Hand. 11/08/19 [facility] Ortho Abnormal uterine bleeding (AUB) (Acute) Estring started by [facility] 11/04/2009 Asthma (Chronic) Migraine headache with aura (Acute) Vitamin D deficiency (Acute) Osteoarthritis (Chronic) Medical History Ingrowing left great toenail Tubular adenoma of colon (~05/2024) COVID sx onset 09/23/22, positive test result 09/24/22 Conjunctival cyst of right eye and blocked tear duct COVID-19 Resolved .. 07/11/21 (+) = day 1 of symptoms. Aspiration of food Incomplete, but enough to affect vocal chords .. cannot speak to state she is not choking.. (episodic, but notably increased) IGTN (ingrowing toe nail) Hx nail removal .. may need it for left great toe. 03/18/21 [facility]: avulsion nail w/matrix(left medial hallux nail border), Acute diverticulitis CT confirmed--Cipro + Flagyl Abdominal pain Lower central abdominal Pain into LLQ; possible diverticulitis? (02/2020) [ ] CT Diverticulosis per colo, 2019 History of postoperative nausea Internal derangement of left knee Injected: 11/15/2018 Family history of breast cancer Mammo NEG 08/2018. Mother recetnly Dx with breast cancer .. waiting genetic cancer, possible gen couns [ ] Family hx of colon cancer requiring screening colonoscopy delivery delivered 1986 Seizures Nearly on year post med d/c, no sz. [ ] Neuro for estab and headache review They are awake seizures, I havent had one in 8 years Surgical History Hx of section History of liver biopsy 12/20/21 H/O nasal septoplasty History of recent maxillofacial surgery Bilateral sagittal split osteotomy with mandibular advancement with Le[place] I setback (24 years old) History of colonoscopy (~05/2024) 03/17/19 History of ankle surgery Right Hx of arthroscopy of knee History of mandibular surgery Hx of exploratory laparotomy History of dilation and curettage Hysteroscopy, D&C AUB Status post creation of urethral sling by suprapubic approach bladder sling also Congenital fusion of spine C4-C5 Family History Mother Colon cancer High cholesterol Hypertension Breast cancer Pulmonary embolism COVID-19 Father COVID-19 Other Family history of breast cancer Family history of malignant melanoma Family hx of colon cancer requiring screening colonoscopy Social History Smoking/Tobacco Use Status: Never Smoking risk assessment performed?: Yes Alcohol Intake: current Alcohol Intake frequency: a few times a week Alcohol type: wine Drug use: Never Substance use type: does not use Adopted: No Household members: spouse and children Housing: house Number of Children: 3 Education Level: master's degree 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-[employer] What is your relationship status?: Panel score (0-1 are the most socially isolated patients): 1 What type of physical activity do you participate in: none Seatbelt use: always Do you feel safe at home: Yes Do you feel safe in your relationship?: Yes POCUS Exam (ED) Limited Soft Tissue Exam DATE OF EXAM: 01/12/25 TIME OF EXAM: 19:10 LOCATION OF EXAM: Lower extremity/left REASON FOR EXAM: Pain and Swelling VISUALIZED STRUCTURES: Fascia, Muscle, Skin, Subcutaneous tissue and Other ( no evidence of DVT left lower extremity) structure: Common femoral vein, superficial femoral vein, popliteal vein of the left lower extremity lower extremity was visualized with good compression and good augmentation no DVT PERTINENT FINDINGS/IMPRESSION: Fluid collection (Torn muscle fibers of the medial gastronemieus muscle is with fluid down through the fascial planes down to the ankle) Medial gastronimius and Hematoma left gastrocnemius muscle . Exam Complete
== END 2025-01-12 20:02 | disposition home or self-care (01) ==
LOC: ER 19:56
PROVIDERS: Emergency Provider Emergency Medicine Emergency Medical Services; PCP Nurse Practitioner Adult Health
DX: S86.112A Strain of other muscle(s) and tendon(s) of posterior muscle group at lower leg level, left leg, initial encounter (principal); I10 Essential (primary) hypertension; Q76.49 Other congenital malformations of spine, not associated with scoliosis
CPT/HCPCS: 76882; 99284

== ENCOUNTER 2025-02-02 03:21 | Outpatient (CLI) | payer OTHER, SELFPAY ==
--- NOTE | 2025-02-02 07:00 | DI.MRI_ITS ---
Exam(s) MR PELVIS WO/W EXAM: MR PELVIS WO/W CLINICAL HISTORY: delineate mass seen on imaging,? fibroid, ? ovarian TECHNIQUE: Multiplanar multisequence MRI of the Abdomen was performed. CONTRAST MATERIAL: IV Contrast: 20 mL of Dotarem contrast administered. COMPARISON: CT CT ABDOMEN PELVIS W from 07/14/2024 US US PELVIS TRANSVAGINAL from 10/21/2024 US US PELVIS TRANSVAGINAL from 12/23/2024 US POCUS EXAM from 01/12/2025 FINDINGS: Reproductive organs: There is again seen a pessary in place. There are several myometrial masses present consistent with uterine fibroids. The largest is on the left side of the body and measures 2.6 transverse by 2.3 AP by 3.7 craniocaudad cm. This is consistent with a subserosal fibroid. The fibroid is isointense to the rest of the uterine myometrium following contrast administration. This corresponds to the finding seen on the CT scan and ultrasound adjacent to the left ovary. The endometrial stripe is grossly unremarkable. Ovaries: The left ovary measures 4.4 x 3.3 cm. There is a 3.1 x 3.3 cm simple cyst arising from the left ovary. This is unchanged compared to the examination from 07/14/2024. The right ovary measures 1.8 x 3.3 cm. There is a 1.7 cm simple cyst on the right ovary. There is thin enhancement of the wall of the cyst following contrast administration. No nodular enhancement or septation is seen. Bowel: There is colonic diverticulosis present. Urinary bladder: Unremarkable. Soft tissues: Unremarkable. Bone: Unremarkable. Lymph nodes: Unremarkable. IMPRESSION: 1. The lesion of concern in the left pelvis arises from the uterus and is most consistent with a subserosal fibroid. 2. There are several smaller uterine fibroids present. 3. Stable 3.1 x 3.3 cm simple left ovarian cyst. 4. Colonic diverticulosis. 5. There is a pessary in place. DATA REPOSITORY:
[2025-02-02] MEDS: Gadoterate meglumine 20 ML SYRINGE IVP (09:49)
[2025-02-02] MEDS: Normal Saline Flush 10 ML SYR IVP (09:50)
== END 2025-02-02 03:41 ==
LOC: DI 03:21
PROVIDERS: PCP Nurse Practitioner Adult Health; Visit Provider Nurse Practitioner Adult Health
DX: D25.2 Subserosal leiomyoma of uterus; K57.30 Diverticulosis of large intestine without perforation or abscess without bleeding
CPT/HCPCS: 72197

== ENCOUNTER 2025-04-21 03:23 | Outpatient (CLI) | payer OTHER, SELFPAY ==
[2025-04-21 08:44] LABS: Abs Immature Grans 0.02 10^3/uL (0.0-0.06); HCT 40.4 % (36.0-46.0); HGB 13.3 g/dL (11.2-15.7); Immature Grans % 0.4 %; MCH 29.5 pg (27.0-33.0); MCHC 32.9 % (32.0-36.0); MCV 90 fL (80-95); MPV 9.8 fL (8.0-11.0); Platelet Count 178 10^3/uL (130-400); RBC 4.51 10^6/uL (3.93-5.22); RDW 12.8 % (11.7-14.6); RDW-SD 41.9 fL; WBC 4.48 10^3/uL (4.4-10.8)
[2025-04-21 09:18] LABS: ALT 56 U/L (14-59); AST 33 U/L (15-37); Albumin 3.4 g/dL (3.4-5.0); Alkaline Phosphatase 87 U/L (46-116); Anion Gap 7.0 mmol/L (3-11); BUN 19 mg/dL (7-18); Bilirubin, Total 0.6 mg/dL (0.2-1.0); CO2 27.0 mmol/L (21.0-32.0); Calcium 8.9 mg/dL (8.5-10.1); Chloride 108 mmol/L (98-107); Estimated GFR 84.30 (mL/min/1.73m2); Glucose 128 mg/dL (74-106); Potassium 3.9 mmol/L (3.5-5.1); Sodium 142 mmol/L (136-145); Total Protein 6.9 g/dL (6.4-8.2)
== END 2025-04-21 03:24 | disposition home or self-care (01) ==
PROVIDERS: PCP Nurse Practitioner Adult Health; Visit Provider Nurse Practitioner
DX: L40.50 Arthropathic psoriasis, unspecified (principal); Z79.899 Other long term (current) drug therapy
CPT/HCPCS: 36415; 80053; 85025

== ENCOUNTER 2025-04-27 12:51 | Outpatient (CLI) | payer OTHER, SELFPAY ==
[2025-04-27 10:16] LABS: INR 1.0 (0.9-1.1); Prothrombin Time 9.7 sec (9.1-11.1)
== END 2025-04-27 12:52 | disposition home or self-care (01) ==
LOC: LBO 12:52
PROVIDERS: PCP Nurse Practitioner Adult Health; Visit Provider Nurse Practitioner Adult Health
DX: K74.60 Unspecified cirrhosis of liver (principal)
CPT/HCPCS: 36415; 85610